=== PATIENT | male | born 1940 | race Caucasian/White ===

== ENCOUNTER 2018-04-24 17:47 | Emergency (ER) | payer MEDICARE, BC ==
[2018-04-24 18:25] VITALS: BP 181/91
--- NOTE | 2018-04-24 19:09 | EDM.PDOC ---
ED HPI GENERAL MEDICAL PROBLEM - General Chief Complaint: ENT Problem Stated Complaint: TOOTHACHE Time Seen by Provider: 04/24/18 18:50 Source of Information: Reports: Patient, Family History Limitations: Reports: No Limitations - History of Present Illness INITIAL COMMENTS - FREE TEXT/NARRATIVE: 77-year-old male with dental pain on the left mandible for the last 2-3 days. He seen the dentist earlier today, had x-rays and was diagnosed with a dental abscess and started on clindamycin. He is taking anti-inflammatories and Tylenol with codeine but it is not controlling the pain. No significant swelling or fever. He needs several teeth pulled. Onset: Gradual Duration: Day(s): (3 days) Associated Symptoms: Reports: No Other Symptoms dental Pain Score (Numeric/FACES): 3 - Related Data Allergies Allergy/AdvReac Type Severity Reaction Status Date / Time Penicillins Allergy Abdominal Verified 04/24/18 19:06 Pain prednisone Allergy Cannot Verified 04/24/18 19:06 Remember metoclopramide HCl AdvReac Abdominal Verified 04/24/18 19:06 [From Reglan] Cramps oxycodone [Oxycodone] AdvReac Abdominal Verified 04/24/18 19:06 Cramps Home Meds: Home Meds Ferrous Sulfate [Iron] 325 mg PO ASDIRECTED 05/07/13 [History] Metoprolol Tartrate [Lopressor] 12.5 mg PO Q12HR 05/07/13 [History] Acetaminophen/Caffeine [Excedrin Tension Headache] 1 tab PO ASDIRECTED PRN 03/13 [History] Aspirin [Vinh Chewable] 81 mg PO DAILY 03/13/14 [History] Caffeine [No Doz] 200 mg PO ASDIRECTED PRN 03/13/14 [History] Cholecalciferol (Vitamin D3) [Vitamin D-3] 2,000 unit PO DAILY 03/13/14 [History ] Docusate Sodium [Colace] 100 mg PO BID PRN 03/13/14 [History] Multivitamin [Multi Vitamin Daily] 1 tab PO DAILY 03/13/14 [History] Omeprazole [priLOSEC OTC] 20 mg PO ASDIRECTED 03/13/14 [History] Pseudoephedrine [Sudafed 12 Hour] 120 mg PO ASDIRECTED PRN 03/13/14 [History] Ranitidine [Zantac] 150 mg PO DAILY PRN 03/13/14 [History] Cyclobenzaprine [Flexeril] 10 mg PO ASDIRECTED PRN 08/07/14 [History] Naproxen 500 mg PO BID PRN 08/07/14 [History] Calcium Carbonate/Vitamin D3 [Calcium Carb 500 MG] 1 tab PO ASDIRECTED 01/23/18 [History] Lovastatin 20 mg PO DAILY 01/23/18 [History] Vitamin B Complex [B Complex] 1 tab PO DAILY 01/23/18 [History] Past Medical History HEENT History: Reports: Impaired Vision Cardiovascular History: Reports: High Cholesterol, Hypertension Other Respiratory History: sarcoidosis lung Gastrointestinal History: Reports: GERD Other Musculoskeletal History: rotator cuff problem Neurological History: Reports: TIA Hematologic History: Reports: Iron Deficiency Oncologic (Cancer) History: Reports: Malignant Melanoma - Infectious Disease History Infectious Disease History: Reports: Chicken Pox, Measles, Mumps, Rubella - Past Surgical History HEENT Surgical History: Reports: Adenoidectomy, Tonsillectomy Cardiovascular Surgical History: Reports: Other (See Below) Other Cardiovascular Surgeries/Procedures: ablation Respiratory Surgical History: Reports: None GI Surgical History: Reports: Colonoscopy, Hernia, Inguinal Neurological Surgical History: Reports: None Musculoskeletal Surgical History: Reports: Arthroscopic Knee Oncologic Surgical History: Reports: Other (See Below) Other Oncologic Surgeries/Procedures: RIGHT ARM EXCISION OF MELANOMA Social & Family History - Family History Family Medical History: Noncontributory - Caffeine Use Caffeine Use: Reports: Soda ED ROS ENT - Review of Systems Review Of Systems: See Below Constitutional: Denies: Fever HEENT: Reports: Dental Pain, Other (Slight swelling along the left mandible) Respiratory: Denies: Shortness of Breath, Cough GI/Abdominal: Denies: Nausea, Vomiting Skin: Denies: Erythema Neurological: Denies: Headache Free Text/Narrative/Comment: Blood pressure is elevated due to the pain ED EXAM, ENT - Physical Exam Exam: See Below Exam Limited By: No Limitations General Appearance: Alert, Mild Distress (Looks uncomfortable) Mouth/Throat: Other (Patient has very advanced dental decay of several molars, the left second molar, #19, is tender to percussion and has some erythema at the base.) Course - Vital Signs Last Recorded V/S: Last Vital Signs Temp 98.9 F 04/24/18 19:06 Pulse 78 04/24/18 19:06 Resp 16 04/24/18 19:06 BP 181/91 H 04/24/18 19:06 Pulse Ox 95 04/24/18 19:06 - Re-Assessments/Exams Free Text/Narrative Re-Assessment/Exam: 04/24/18 19:07 Encouraged to continue the clindamycin as prescribed, and was given 10 Percocet for extra pain control. Continue with anti-inflammatories. Return if fever or increased swelling despite treatment. Departure - Departure Time of Disposition: 19:19 Disposition: Home, Self-Care 01 Condition: Good Clinical Impression: Dental abscess - Discharge Information Instructions: Dental Abscess, [id number] Referrals: Nura Sotelo NP [Primary Care Provider] - Forms: ED Department Discharge Care Plan Goals: Continue with antibiotic and anti-inflammatory. Add stronger pain medication as needed over the next couple of days, and return if worsening such as fever or increased swelling despite treatment.
== END 2018-04-24 19:19 | disposition home or self-care (01) ==
LOC: JP.ED 17:47
DX: K04.7 Periapical abscess without sinus (principal); E78.00 Pure hypercholesterolemia, unspecified; I10 Essential (primary) hypertension; K21.9 Gastro-esophageal reflux disease without esophagitis; Z88.0 Allergy status to penicillin; Z88.5 Allergy status to narcotic agent; Z88.8 Allergy status to other drugs, medicaments and biological substances; Z79.82 Long term (current) use of aspirin
CPT/HCPCS: 99282

== ENCOUNTER 2019-12-28 04:51 | Emergency (ER) | payer MEDICARE, BC ==
[2019-12-28 05:17] VITALS: BP 181/92; PULSE 76
[2019-12-28] MEDS ORDERED: Sodium Chloride 0.9% 1,000 ML IV SCH (05:30)
--- NOTE | 2019-12-28 05:34 | EDM.PDOC ---
ED HPI GENERAL MEDICAL PROBLEM - General Chief Complaint: Upper Extremity Injury/Pain Stated Complaint: MEDICAL VIA NORTH Time Seen by Provider: 12/28/19 05:29 Source of Information: Reports: Patient, Family History Limitations: Reports: No Limitations - History of Present Illness INITIAL COMMENTS - FREE TEXT/NARRATIVE: pt got up to the bathoom and got pain in the left arm and was very liteheaded. He may have noted some spinning in the room. He thinks the dizziness lasted about 1 minute. He does not have aheadache. His bp did go up to 180/90. Onset: Today Duration: Minutes: Location: Reports: Other (pt did not experience any chest pain. 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 - Related Data Allergies Allergy/AdvReac Type Severity Reaction Status Date / Time Penicillins Allergy Abdominal Verified 12/28/19 04:58 Pain prednisone Allergy Cannot Verified 12/28/19 04:58 Remember metoclopramide HCl AdvReac Abdominal Verified 12/28/19 04:58 [From Reglan] Cramps oxycodone [Oxycodone] AdvReac Abdominal Verified 12/28/19 04:58 Cramps Home Meds: Home Meds Ferrous Sulfate [Iron] 325 mg PO ASDIRECTED 05/07/13 [History] Metoprolol Tartrate [Lopressor] 12.5 mg PO Q12HR 05/07/13 [History] Acetaminophen/Caffeine [Excedrin Tension Headache] 1 tab PO ASDIRECTED PRN 03/13/14 [History] Aspirin [Vinh Chewable] 81 mg PO DAILY 03/13/14 [History] Caffeine [No Doz] 200 mg PO ASDIRECTED PRN 03/13/14 [History] Cholecalciferol (Vitamin D3) [Vitamin D-3] 2,000 unit PO DAILY 03/13/14 [History] Docusate Sodium [Colace] 100 mg PO BID PRN 03/13/14 [History] Multivitamin [Multi Vitamin Daily] 1 tab PO DAILY 03/13/14 [History] Omeprazole [priLOSEC OTC] 20 mg PO ASDIRECTED 03/13/14 [History] Pseudoephedrine [Sudafed 12 Hour] 120 mg PO ASDIRECTED PRN 03/13/14 [History] Ranitidine [Zantac] 150 mg PO DAILY PRN 03/13/14 [History] Cyclobenzaprine [Flexeril] 10 mg PO ASDIRECTED PRN 08/07/14 [History] Naproxen 500 mg PO BID PRN 08/07/14 [History] Calcium Carbonate/Vitamin D3 [Calcium Carb 500 MG] 1 tab PO ASDIRECTED 01/23/18 [History] Lovastatin 20 mg PO DAILY 01/23/18 [History] Vitamin B Complex [B Complex] 1 tab PO DAILY 01/23/18 [History] Past Medical History HEENT History: Reports: Impaired Vision Cardiovascular History: Reports: Afib, High Cholesterol, Hypertension Respiratory History: Reports: Other (See Below) Other Respiratory History: sarcoidosis lung Gastrointestinal History: Reports: GERD Genitourinary History: Reports: Prostate Disorder Musculoskeletal History: Reports: Other (See Below) Other Musculoskeletal History: rotator cuff problem Neurological History: Reports: TIA Hematologic History: Reports: Iron Deficiency Oncologic (Cancer) History: Reports: Malignant Melanoma - Infectious Disease History Infectious Disease History: Reports: Chicken Pox, Measles, Mumps - Past Surgical History HEENT Surgical History: Reports: Adenoidectomy, Tonsillectomy Cardiovascular Surgical History: Reports: Cardiac Ablation, Other (See Below) Other Cardiovascular Surgeries/Procedures: ablation Respiratory Surgical History: Reports: None GI Surgical History: Reports: Colonoscopy, Hernia, Inguinal Neurological Surgical History: Reports: None Musculoskeletal Surgical History: Reports: Arthroscopic Knee Oncologic Surgical History: Reports: Other (See Below) Other Oncologic Surgeries/Procedures: RIGHT ARM EXCISION OF MELANOMA Social & Family History - Family History Family Medical History: Noncontributory - Tobacco Use Tobacco Use Status *Q: Never Tobacco User - Caffeine Use Caffeine Use: Reports: Soda - Recreational Drug Use Recreational Drug Use: No Review of Systems - Review of Systems Review Of Systems: See Below Constitutional: Reports: No Symptoms Eyes: Reports: No Symptoms Ears: Reports: No Symptoms Nose: Reports: No Symptoms Mouth/Throat: Reports: No Symptoms Respiratory: Reports: No Symptoms Cardiovascular: Reports: Other (left arm pain that was very brief. ) GI/Abdominal: Reports: Constipation, Other (pt does not drink enough fluids. ) Genitourinary: Reports: No Symptoms Musculoskeletal: Reports: No Symptoms Skin: Reports: No Symptoms ED EXAM, GENERAL - Physical Exam Exam: See Below Free Text/Narrative:: pt arrived with a history of dizziness that lasted 1 minute ans a brief left arm pain whjen he was up to the bathroom. Exam Limited By: No Limitations General Appearance: Alert, No Apparent Distress, Anxious, Other (pupils are equal and reactive. ) Ears: Normal TMs Nose: Normal Inspection Throat/Mouth: Normal Inspection Head: Atraumatic Neck: Normal Inspection Respiratory/Chest: No Respiratory Distress Cardiovascular: Regular Rate, Rhythm GI/Abdominal: Soft, Non-Tender (Male) Exam: Deferred Rectal (Males) Exam: Deferred Back Exam: Normal Inspection Extremities: Normal Inspection Neurological: Alert, Oriented, Normal Cognition Psychiatric: Anxious Course - Vital Signs Last Recorded V/S: Last Vital Signs Temp 36.6 C 12/28/19 05:01 Pulse 76 12/28/19 05:01 Resp 18 12/28/19 05:01 BP 181/92 H 12/28/19 05:01 Pulse Ox 98 12/28/19 05:01 Orthostatic Blood Pressure [ 170/90 Standing] Orthostatic Blood Pressure [ 166/84 Sitting] Orthostatic Blood Pressure [ 155/91 Supine] - Orders/Labs/Meds Orders: Active Orders 24 hr Category Date Time Status EKG Documentation Completion [RC] ASDIRECTED Care 12/28/19 05:16 Active Orthostatic Vital Signs [RC] ASDIRECTED Care 12/28/19 05:28 Active UA W/MICROSCOPIC [URIN] Urgent Lab 12/28/19 06:37 Ordered Sodium Chloride 0.9% [Normal Saline] 1,000 ml Med 12/28/19 05:30 Active IV ASDIRECTED EKG 12 Lead [EK] Routine Ther 12/28/19 05:16 Ordered Medication Orders Sodium Chloride (Normal Saline) 1,000 mls @ 999 mls/hr IV ASDIRECTED JANA Last Admin: 12/28/19 05:37 Dose: 999 mls/hr Documented by: ANNMARIE Labs: Laboratory Tests 12/28/19 12/28/19 12/28/19 Range/Units 05:16 05:42 05:42 WBC 4.8 (4.5-11.0) K/uL RBC 4.90 (4.30-5.90) M/uL Hgb 11.8 L (12.0-15.0) g/dL Hct 38.8 L (40.0-54.0) % MCV 79 L (80-98) fL MCH 24 L (27-31) pg MCHC 30 L (32-36) % Plt Count 184 (150-400) K/uL Neut % (Auto) 60 (36-66) % Lymph % (Auto) 22 L (24-44) % Band[place] % (Auto) 14 H (2-6) % Eos % (Auto) 4 (2-4) % Baso % (Auto) 1 (0-1) % Sodium 141 (140-148) mmol/L Potassium 3.6 (3.6-5.2) mmol/L Chloride 104 (100-108) mmol/L Carbon Dioxide 26 (21-32) mmol/L Anion Gap 11.0 (5.0-14.0) mmol/L BUN 7 D (7-18) mg/dL Creatinine 1.2 (0.8-1.3) mg/dL Est Cr Clr Drug Dosing 49.88 mL/min Estimated GFR (MDRD) 59 L (>60) Glucose 95 (74-106) mg/dL Calcium 8.6 (8.5-10.1) mg/dL Iron (65-175) ug/dL TIBC (250-450) ug/dl % Saturation (20-55) % Total Bilirubin 0.7 (0.2-1.0) mg/dL AST 25 (15-37) U/L ALT 21 (12-78) U/L Alkaline Phosphatase 84 (46-116) U/L Troponin I < 0.017 (0.000-0.056) ng/mL Total Protein 6.6 (6.4-8.2) g/dL Albumin 3.5 (3.4-5.0) g/dL Globulin 3.1 (2.3-3.5) g/dL Albumin/Globulin Ratio 1.1 L (1.2-2.2) 12/28/19 Range/Units 06:10 WBC (4.5-11.0) K/uL RBC (4.30-5.90) M/uL Hgb (12.0-15.0) g/dL Hct (40.0-54.0) % MCV (80-98) fL MCH (27-31) pg MCHC (32-36) % Plt Count (150-400) K/uL Neut % (Auto) (36-66) % Lymph % (Auto) (24-44) % Band[place] % (Auto) (2-6) % Eos % (Auto) (2-4) % Baso % (Auto) (0-1) % Sodium (140-148) mmol/L Potassium (3.6-5.2) mmol/L Chloride (100-108) mmol/L Carbon Dioxide (21-32) mmol/L Anion Gap (5.0-14.0) mmol/L BUN (7-18) mg/dL Creatinine (0.8-1.3) mg/dL Est Cr Clr Drug Dosing mL/min Estimated GFR (MDRD) (>60) Glucose (74-106) mg/dL Calcium (8.5-10.1) mg/dL Iron 31 L (65-175) ug/dL TIBC 363 (250-450) ug/dl % Saturation 9 L (20-55) % Total Bilirubin (0.2-1.0) mg/dL AST (15-37) U/L ALT (12-78) U/L Alkaline Phosphatase (46-116) U/L Troponin I (0.000-0.056) ng/mL Total Protein (6.4-8.2) g/dL Albumin (3.4-5.0) g/dL Globulin (2.3-3.5) g/dL Albumin/Globulin Ratio (1.2-2.2) Meds: Medications Generic Name Dose Route Start Last Admin Trade Name Freq PRN Reason Stop Dose Admin Sodium Chloride 1,000 mls @ 999 mls/hr 12/28/19 05:30 12/28/19 05:37 Normal Saline IV 999 mls/hr ASDIRECTED [facility] Administration - Re-Assessments/Exams Free Text/Narrative Re-Assessment/Exam: 12/28/19 05:48 pt admits to not drinking enough fluids. He has a very dry mouth. 12/28/19 06:42 pt has low fe ans his hg is 11. He will try to get more fe in his diet. Departure - Departure Time of Disposition: 06:42 Disposition: Home, Self-Care 01 Condition: Fair Clinical Impression: Anemia, Iron (Fe) deficiency anemia, Dehydration - Discharge Information Referrals: PCP,None [Primary Care Provider] - Forms: ED Department Discharge Care Plan Goals: push fluids, increase fe in diet. If swallowing difficulty continues pt should get rescoped. Sepsis Event Note (ED) - Evaluation Sepsis Screening Result: No Definite Risk - Focused Exam Vital Signs: Vital Signs Temp Pulse Resp BP Pulse Ox 12/28/19 05:01 36.6 C 76 18 181/92 H 98 - My Orders Last 24 Hours: My Active Orders 12/28/19 05:16 EKG Documentation Completion [RC] ASDIRECTED EKG 12 Lead [EK] Routine 12/28/19 05:28 Orthostatic Vital Signs [RC] ASDIRECTED 12/28/19 05:30 Sodium Chloride 0.9% [Normal Saline] 1,000 ml IV ASDIRECTED 12/28/19 06:37 UA W/MICROSCOPIC [URIN] Urgent - Assessment/Plan Last 24 Hours: My Active Orders 12/28/19 05:16 EKG Documentation Completion [RC] ASDIRECTED EKG 12 Lead [EK] Routine 12/28/19 05:28 Orthostatic Vital Signs [RC] ASDIRECTED 12/28/19 05:30 Sodium Chloride 0.9% [Normal Saline] 1,000 ml IV ASDIRECTED 12/28/19 06:37 UA W/MICROSCOPIC [URIN] Urgent
== END 2019-12-28 06:51 | disposition home or self-care (01) ==
LOC: JP.ED 04:51
DX: E86.0 Dehydration (principal); D50.9 Iron deficiency anemia, unspecified; M79.602 Pain in left arm; E78.00 Pure hypercholesterolemia, unspecified; I10 Essential (primary) hypertension; I48.91 Unspecified atrial fibrillation; Z88.0 Allergy status to penicillin; Z88.5 Allergy status to narcotic agent; Z88.8 Allergy status to other drugs, medicaments and biological substances; Z88.2 Allergy status to sulfonamides; Z79.82 Long term (current) use of aspirin; Z79.899 Other long term (current) drug therapy
CPT/HCPCS: 36415; 80053; 81001; 83550; 84484; 85025; 93005; 93010; 99284; J7030

== ENCOUNTER 2020-12-23 11:29 | Emergency (ER) | payer MEDICARE, BC ==
[2020-12-23 11:33] VITALS: BP 148/77; PULSE 79
[2020-12-23] MEDS ORDERED: Lidocaine 1% with EPINEPHrine 1:100,000 50 ML MDV ONE (11:37)
[2020-12-23] MEDS ORDERED: Lidocaine 1% with EPINEPHrine 1:100,000 50 ML MDV INJECT ONE (11:40)
--- NOTE | 2020-12-23 11:48 | EDM.PDOC ---
ED HPI GENERAL MEDICAL PROBLEM - General Chief Complaint: Laceration Stated Complaint: MEDICAL VIA NORTH Time Seen by Provider: 12/23/20 11:45 Source of Information: Reports: Patient, RN Notes Reviewed History Limitations: Reports: No Limitations - History of Present Illness INITIAL COMMENTS - FREE TEXT/NARRATIVE: 80-year-old gentleman presents emergency department today where he describes bleeding from his left lower extremity EMS services were called tourniquet was placed by law enforcement and another by EMS as well as a pressure dressing. By the time he arrives to the emergency department bleeding is controlled the 2 tourniquets were removed slowly he remains in the pressure dressing the pressure dressing was packed with Tranexamic acid - Related Data Allergies Allergy/AdvReac Type Severity Reaction Status Date / Time Penicillins Allergy Abdominal Verified 12/23/20 11:47 Pain prednisone Allergy Cannot Verified 12/23/20 11:47 Remember metoclopramide HCl AdvReac Abdominal Verified 12/23/20 11:47 [From Reglan] Cramps oxycodone [Oxycodone] AdvReac Abdominal Verified 12/23/20 11:47 Cramps Home Meds: Home Meds Ferrous Sulfate [Iron] 325 mg PO DAILY 05/07/13 [History] Metoprolol Tartrate [Lopressor] 12.5 mg PO Q12HR 05/07/13 [History] Aspirin [Vinh Chewable] 81 mg PO DAILY 03/13/14 [History] Cholecalciferol (Vitamin D3) [Vitamin D-3] 2,000 unit PO DAILY 03/13/14 [History] Multivitamin [Multi Vitamin Daily] 1 tab PO DAILY 03/13/14 [History] Omeprazole [priLOSEC OTC] 20 mg PO DAILY 03/13/14 [History] Pseudoephedrine [Sudafed 12 Hour] 120 mg PO ASDIRECTED PRN 03/13/14 [History] Cyclobenzaprine [Flexeril] 10 mg PO ASDIRECTED PRN 08/07/14 [History] Naproxen 500 mg PO BID PRN 08/07/14 [History] Lovastatin 20 mg PO DAILY 01/23/18 [History] Vitamin B Complex [B Complex] 1 tab PO DAILY 01/23/18 [History] Past Medical History HEENT History: Reports: Impaired Vision Cardiovascular History: Reports: Afib, High Cholesterol, Hypertension Respiratory History: Reports: Other (See Below) Other Respiratory History: sarcoidosis lung Gastrointestinal History: Reports: GERD Genitourinary History: Reports: Prostate Disorder Musculoskeletal History: Reports: Other (See Below) Other Musculoskeletal History: rotator cuff problem Neurological History: Reports: TIA Hematologic History: Reports: Iron Deficiency Oncologic (Cancer) History: Reports: Malignant Melanoma - Infectious Disease History Infectious Disease History: Reports: Chicken Pox, Measles, Mumps - Past Surgical History HEENT Surgical History: Reports: Adenoidectomy, Tonsillectomy Cardiovascular Surgical History: Reports: Cardiac Ablation, Other (See Below) Other Cardiovascular Surgeries/Procedures: ablation Respiratory Surgical History: Reports: None GI Surgical History: Reports: Colonoscopy, Hernia, Inguinal Neurological Surgical History: Reports: None Musculoskeletal Surgical History: Reports: Arthroscopic Knee Oncologic Surgical History: Reports: Other (See Below) Other Oncologic Surgeries/Procedures: RIGHT ARM EXCISION OF MELANOMA Social & Family History - Family History Family Medical History: No Pertinent Family History - Caffeine Use Caffeine Use: Reports: Soda ED ROS GENERAL - Review of Systems Review Of Systems: See Below Skin: Reports: Wound ED EXAM, SKIN/RASH Exam: See Below Text/Narrative:: Examination of the lower extremity and left side there is a small puncture wound approximately 0.2 0.3 cm bleeding is controlled elected to proceed with just a superficial [id number] to close the wound ED SKIN PROCEDURES - Laceration/Wound Repair Left Leg Appearance: Superficial Anesthetic Type: Local Local Anesthesia - Lidocaine (Xylocaine): 1% with EPI Local Anesthetic Volume: 2cc Saline Irrigation (cc's): 20 Exploration/Debridement/Repair: Wound Explored, In a Bloodless Field, Explored to Base Closed with: Sutures Lac/Wound length In cm: 0.2 Suture Size: 3-0 # of Sutures: 1 Suture Type: Other ( figure of eight) Complications: No Course - Vital Signs Last Recorded V/S: Last Vital Signs Temp 97.7 F 12/23/20 11:56 Pulse 79 12/23/20 11:56 Resp 18 12/23/20 11:56 BP 148/77 H 12/23/20 11:56 Pulse Ox 98 12/23/20 11:56 - Orders/Labs/Meds Meds: Medications Discontinued Medications Generic Name Dose Route Start Last Admin Trade Name Freq PRN Reason Stop Dose Admin Lidocaine/Epinephrine Confirm 12/23/20 11:37 Lidocaine 1% With Epinephrine 1:100,000 50 Ml Mdv Administered 12/23/20 11:38 Dose 50 ml .ROUTE .STK-MED ONE Departure - Departure Time of Disposition: 12:12 Disposition: Home, Self-Care 01 Condition: Fair Clinical Impression: Puncture wound of left lower leg Qualifiers: Encounter type: initial encounter Qualified Code(s): S81.832A - Puncture wound without foreign body, left lower leg, initial encounter - Discharge Information Instructions: Puncture Wound Referrals: PCP,Unknown [Primary Care Provider] - Forms: ED Department Discharge Additional Instructions: Follow wound care instruction sheet, follow-up with primary care for further evaluation 10 days for suture removal Sepsis Event Note (ED) - Focused Exam Vital Signs: Vital Signs Temp Pulse Resp BP Pulse Ox 12/23/20 11:56 97.7 F 79 18 148/77 H 98 12/23/20 11:32 97.7 F 79 18 148/77 H 98 - Assessment/Plan Plan: Assessment Acuity = acute Site and laterality = superficial venous bleeding Etiology = varicose veins break in the skin Manifestations = none Location of injury = Home Lab values = none Plan Just placed a superficial [id number] over the small puncture wound he will follow-up with his primary care for further evaluation This note was dictated using [employer] voice recognition software please call with any questions on syntax or grammar.
== END 2020-12-23 13:23 | disposition home or self-care (01) ==
LOC: JP.ED 11:29
DX: S81.832A Puncture wound without foreign body, left lower leg, initial encounter (principal); I48.91 Unspecified atrial fibrillation; I10 Essential (primary) hypertension; K21.9 Gastro-esophageal reflux disease without esophagitis; D50.9 Iron deficiency anemia, unspecified; Z88.0 Allergy status to penicillin; Z88.8 Allergy status to other drugs, medicaments and biological substances; Z88.5 Allergy status to narcotic agent; Z79.82 Long term (current) use of aspirin; Z79.899 Other long term (current) drug therapy; X58.XXXA Exposure to other specified factors, initial encounter
CPT/HCPCS: 12001; 99283-25

== ENCOUNTER 2021-01-02 00:01 | Emergency (ER) | payer MEDICARE, BC ==
[2021-01-02 00:05] VITALS: BP 171/75; PULSE 60
--- NOTE | 2021-01-02 00:31 | EDM.PDOC ---
ED HPI GENERAL MEDICAL PROBLEM - General Chief Complaint: General Stated Complaint: CHEST PRESSURE VIA [facility] Time Seen by Provider: 01/02/21 00:23 Source of Information: Reports: Patient History Limitations: Reports: No Limitations - History of Present Illness INITIAL COMMENTS - FREE TEXT/NARRATIVE: pt developed a intense pressure in the middle of his chest. He has a past histo ry of atrial fib but has not had recent problems. He has not had this pain in thr past. He thinks it lasted about 10 minutes. By the time the ambulance got there the pain was gone. He is pain free at this time. Onset: Today, Sudden Duration: Minutes: Location: Reports: Chest, Other (pt is pain free. ) Quality: Reports: Pressure - Related Data Allergies Allergy/AdvReac Type Severity Reaction Status Date / Time Penicillins Allergy Abdominal Verified 01/02/21 00:06 Pain prednisone Allergy Cannot Verified 01/02/21 00:06 Remember metoclopramide HCl AdvReac Abdominal Verified 01/02/21 00:06 [From Reglan] Cramps oxycodone [Oxycodone] AdvReac Abdominal Verified 01/02/21 00:06 Cramps Home Meds: Home Meds Ferrous Sulfate [Iron] 325 mg PO DAILY 05/07/13 [History] Metoprolol Tartrate [Lopressor] 12.5 mg PO Q12HR 05/07/13 [History] Aspirin [Vinh Chewable] 81 mg PO DAILY 03/13/14 [History] Cholecalciferol (Vitamin D3) [Vitamin D-3] 2,000 unit PO DAILY 03/13/14 [History] Multivitamin [Multi Vitamin Daily] 1 tab PO DAILY 03/13/14 [History] Omeprazole [priLOSEC OTC] 20 mg PO DAILY 03/13/14 [History] Pseudoephedrine [Sudafed 12 Hour] 120 mg PO ASDIRECTED PRN 03/13/14 [History] Cyclobenzaprine [Flexeril] 10 mg PO ASDIRECTED PRN 08/07/14 [History] Naproxen 500 mg PO BID PRN 08/07/14 [History] Lovastatin 20 mg PO DAILY 01/23/18 [History] Vitamin B Complex [B Complex] 1 tab PO DAILY 01/23/18 [History] Past Medical History HEENT History: Reports: Impaired Vision Cardiovascular History: Reports: Afib, High Cholesterol, Hypertension Respiratory History: Reports: Other (See Below) Other Respiratory History: sarcoidosis lung Gastrointestinal History: Reports: GERD Genitourinary History: Reports: Prostate Disorder Musculoskeletal History: Reports: Other (See Below) Other Musculoskeletal History: rotator cuff problem Neurological History: Reports: TIA Hematologic History: Reports: Iron Deficiency Oncologic (Cancer) History: Reports: Malignant Melanoma - Infectious Disease History Infectious Disease History: Reports: Chicken Pox, Measles, Mumps - Past Surgical History HEENT Surgical History: Reports: Adenoidectomy, Tonsillectomy Cardiovascular Surgical History: Reports: Cardiac Ablation, Other (See Below) Other Cardiovascular Surgeries/Procedures: ablation Respiratory Surgical History: Reports: None GI Surgical History: Reports: Colonoscopy, Hernia, Inguinal Neurological Surgical History: Reports: None Musculoskeletal Surgical History: Reports: Arthroscopic Knee Oncologic Surgical History: Reports: Other (See Below) Other Oncologic Surgeries/Procedures: RIGHT ARM EXCISION OF MELANOMA Social & Family History - Family History Family Medical History: No Pertinent Family History - Tobacco Use Tobacco Use Status *Q: Never Tobacco User - Caffeine Use Caffeine Use: Reports: Soda - Recreational Drug Use Recreational Drug Use: No ED ROS GENERAL - Review of Systems Review Of Systems: See Below Constitutional: Reports: No Symptoms HEENT: Reports: No Symptoms Respiratory: Reports: No Symptoms Cardiovascular: Reports: Chest Pain Endocrine: Reports: No Symptoms GI/Abdominal: Reports: Other (pt ws not nauseated or did not vomit. He did not get sweaty. ) : Reports: No Symptoms Musculoskeletal: Reports: No Symptoms Skin: Reports: No Symptoms ED EXAM, GENERAL - Physical Exam Exam: See Below Free Text/Narrative:: pt arrived with a history of significant chest pressure that lasted for about 10 min. Exam Limited By: No Limitations General Appearance: Alert, No Apparent Distress, Anxious Ears: Normal TMs Nose: Normal Inspection Throat/Mouth: Normal Inspection Head: Atraumatic Neck: Normal Inspection Respiratory/Chest: No Respiratory Distress Cardiovascular: Regular Rate, Rhythm GI/Abdominal: Soft, Non-Tender (Male) Exam: Deferred Rectal (Males) Exam: Deferred Back Exam: Normal Inspection Extremities: Pedal Edema, Other (pt has plus 2 pitting edema. ) Neurological: Alert, Oriented, Normal Cognition Psychiatric: Anxious #1 Interpretation Rhythm: NSR QRS: RBBB ST-T: Normal EKG Interpretation Comments: pt is having atrial premature beats which resets his rhythm. rate is 57. Course - Vital Signs Last Recorded V/S: Last Vital Signs Temp 35.8 C L 01/02/21 00:03 Pulse 60 01/02/21 00:03 Resp 16 01/02/21 00:03 BP 171/75 H 01/02/21 00:03 Pulse Ox 100 01/02/21 00:03 - Orders/Labs/Meds Orders: Active Orders 24 hr Category Date Time Status EKG 12 Lead [EK] Routine Ther 01/02/21 00:23 Ordered Labs: Laboratory Tests 01/02/21 01/02/21 01/02/21 Range/Units 00:36 00:36 00:36 WBC 4.3 L (4.5-11.0) K/uL RBC 4.30 (4.30-5.90) M/uL Hgb 11.8 L (12.0-15.0) g/dL Hct 37.1 L (40.0-54.0) % MCV 86 (80-98) fL MCH 27 (27-31) pg MCHC 32 (32-36) % Plt Count 173 (150-400) K/uL Neut % (Auto) 49.8 (36-66) % Lymph % (Auto) 20.0 L (24-44) % [place] % (Auto) 19.1 H (2-6) % Eos % (Auto) 10.2 H (2-4) % Baso % (Auto) 0.9 (0-1) % Sodium 145 (140-148) mmol/L Potassium 3.9 (3.6-5.2) mmol/L Chloride 108 (100-108) mmol/L Carbon Dioxide 25 (21-32) mmol/L Anion Gap 11.7 (5.0-14.0) mmol/L BUN 8 (7-18) mg/dL Creatinine 0.9 (0.8-1.3) mg/dL Est Cr Clr Drug Dosing 65.10 mL/min Estimated GFR (MDRD) > 60 (>60) Glucose 86 (74-106) mg/dL Calcium 8.6 (8.5-10.1) mg/dL Total Bilirubin 0.6 (0.2-1.0) mg/dL AST 41 H (15-37) U/L ALT 35 (12-78) U/L Alkaline Phosphatase 71 (46-116) U/L Troponin I < 0.017 (0.000-0.056) ng/mL Total Protein 6.6 (6.4-8.2) g/dL Albumin 3.6 (3.4-5.0) g/dL Globulin 3.0 (2.3-3.5) g/dL Albumin/Globulin Ratio 1.2 (1.2-2.2) - Re-Assessments/Exams Free Text/Narrative Re-Assessment/Exam: 01/02/21 01:32 cardiac evaluation showed normal trop/ He has a rt bundle branch block he has no acute changes. He has no further chest pain Departure - Departure Time of Disposition: 01:33 Disposition: Home, Self-Care 01 Condition: Fair Clinical Impression: Chest pain, History of esophageal reflux - Discharge Information Referrals: PCP,Unknown [Primary Care Provider] - Forms: ED Department Discharge Care Plan Goals: take extra omeprozole tonight. See his own physian if he has further symtoms, use compresion socks for his edema. Elevate his legs when he is sitting. Sepsis Event Note (ED) - Evaluation Sepsis Screening Result: No Definite Risk - Focused Exam Vital Signs: Vital Signs Temp Pulse Resp BP Pulse Ox 01/02/21 00:03 35.8 C L 60 16 171/75 H 100 - My Orders Last 24 Hours: My Active Orders 01/02/21 00:23 EKG 12 Lead [EK] Routine - Assessment/Plan Last 24 Hours: My Active Orders 01/02/21 00:23 EKG 12 Lead [EK] Routine
--- NOTE | 2021-01-02 01:08 | CRLCR ---
For Patients: As a result of the Century Cures Act, medical imaging exams and procedure reports are released immediately into your electronic medical record. You may view this report before your referring provider. If you have questions, please contact your health care provider. INDICATION: Chest pain, shortness of breath TECHNIQUE: Chest radiograph 1 view COMPARISON: 10/25/2016 FINDINGS: Mediastinum: The mediastinum is normal in appearance. The heart silhouette is normal in size and morphology. Lung: Both lungs are unremarkable in appearance. No sign of pleural effusion seen. No pneumothorax is identified. Bone and Soft tissue: Unremarkable for age. IMPRESSION: 1. No acute cardiopulmonary disease is seen. Dictated by: Compa Higginbotham MD @ 01/02/2021 01:05:43 (Electronically Signed)
== END 2021-01-02 01:48 | disposition home or self-care (01) ==
LOC: JP.ED 00:01
DX: R07.89 Other chest pain (principal); K21.9 Gastro-esophageal reflux disease without esophagitis; I48.91 Unspecified atrial fibrillation; E78.00 Pure hypercholesterolemia, unspecified; I10 Essential (primary) hypertension; Z86.73 Personal history of transient ischemic attack (TIA), and cerebral infarction without residual deficits; Z88.0 Allergy status to penicillin; Z88.5 Allergy status to narcotic agent; Z88.8 Allergy status to other drugs, medicaments and biological substances; Z79.82 Long term (current) use of aspirin; Z79.899 Other long term (current) drug therapy
CPT/HCPCS: 36415; 71045; 80053; 84484; 85025; 93005; 99285-25

== ENCOUNTER 2022-07-20 16:25 | Inpatient (IN) | payer MEDICARE, BC ==
[2022-07-20] MEDS ORDERED: Ondansetron 4 MG/2 ML SDV IVPUSH ONE (16:56)
[2022-07-20] MEDS ORDERED: HYDROmorphone 0.5 MG/0.5 ML Syringe IVPUSH ONE (16:56)
[2022-07-20] MEDS ORDERED: Sodium Chloride 0.9% 1,000 ML IV SCH (17:00)
[2022-07-20 17:09] LABS: HEMATOCRIT 44.5 % (38.4-49.7); HEMOGLOBIN 15.2 g/dL (12.9-16.9); MEAN CORPUSCULAR HEMOGLOBIN 29.7 pg (31.6-35.5); MEAN CORPUSCULAR HGB CONC 34.2 g/dL (31.6-35.5); MEAN CORPUSCULAR VOLUME 87.1 fL (81.4-99.0); RED BLOOD CELL COUNT 5.11 M/uL (4.14-5.76)
[2022-07-20 17:32] LABS: ALANINE AMINOTRANSFERASE,ALT 22 U/L (12-78); ALBUMIN 3.9 g/dL (3.4-5.0); ALKALINE PHOSPHATASE 71 U/L (46-116); ANION GAP 15.7 mmol/L (5.0-14.0); ASPARTATE AMNIOTRANSFERASE,AST 29 U/L (15-37); BLOOD UREA NITROGEN,BUN 11 mg/dL (7-18); CALCIUM 8.9 mg/dL (8.5-10.1); CARBON DIOXIDE,CO2 23 mmol/L (21-32); CHLORIDE,CL 96 mmol/L (100-108); CREATININE 0.9 mg/dL (0.8-1.3); ESTIMATED GFR 87 mL/min (>60); GLUCOSE RANDOM 182 mg/dL (74-106); POTASSIUM,K 3.7 mmol/L (3.6-5.2); PROTEIN TOTAL,TP 7.7 g/dL (6.4-8.2); SODIUM,NA 131 mmol/L (140-148)
[2022-07-20 18:43] LABS: APPEARANCE,URINE CLEAR (CLEAR); BILIRUBIN,URINE NEGATIVE (NEGATIVE); COLOR,URINE YELLOW (YELLOW); GLUCOSE,URINE NEGATIVE (NEGATIVE); KETONES,URINE 15 mg/dL (NEGATIVE); LEUKOCYTE ESTERASE,URINE NEGATIVE (NEGATIVE); NITRITE,URINE NEGATIVE (NEGATIVE); OCCULT BLOOD,URINE NEGATIVE (NEGATIVE); PROTEIN,URINE NEGATIVE (NEGATIVE); UROBILINOGEN,URINE 0.2 EU/dL (0.2-1.0)
[2022-07-20 18:48] LABS: AMPHETAMINES SCREEN, URINE NEGATIVE (NEGATIVE); BARBITURATE SCREEN,URINE NEGATIVE (NEGATIVE); BENZODIAZEPINES SCREEN,URINE NEGATIVE (NEGATIVE); METHADONE SCREEN, URINE NEGATIVE (NEGATIVE); METHAMPHETAMINES SCREEN, URINE NEGATIVE (NEGATIVE); OXYCODONE SCREEN,URINE NEGATIVE (NEGATIVE); PROPOXYPHENE SCREEN,URINE NEGATIVE (NEGATIVE); THC SCREEN,URINE 50 NG/ML NEGATIVE (NEGATIVE)
[2022-07-20 18:56] LABS: AMORPHOUS SEDIMENT,URINE NOT SEEN; BACTERIA,URINE RARE; EPITHELIAL CELLS,URINE RARE; MUCUS,URINE RARE; RBC,URINE 0-5 (0-5); WBC,URINE 0-5 (0-5)
[2022-07-20] MEDS ORDERED: Ondansetron 4 MG/2 ML SDV IV PRN (19:15)
[2022-07-20] MEDS: Lactated Ringers 1,000 ML IV SCH (20:05)
[2022-07-20] MEDS: ceFAZolin 2 GM in Sodium Chloride 0.9% 50 ML IV SCH (21:16)
[2022-07-21] MEDS: ceFAZolin 2 GM in Sodium Chloride 0.9% 50 ML IV SCH (03:10)
[2022-07-21] MEDS: Lactated Ringers 1,000 ML IV SCH (06:04)
[2022-07-21] MEDS ORDERED: Lidocaine 1% with EPINEPHrine 1:100,000 50 ML MDV ONE (07:05)
[2022-07-21] MEDS ORDERED: Bupivacaine 0.5% 50 ML MDV ONE (07:05)
[2022-07-21] MEDS ORDERED: Glycopyrrolate 0.2 MG/ML 5 ML MDV ONE (07:18)
[2022-07-21] MEDS ORDERED: Propofol 200 MG/20 ML SDV ONE (07:18)
[2022-07-21] MEDS ORDERED: Rocuronium 50 MG/5 ML Vial ONE (07:18)
[2022-07-21] MEDS ORDERED: Ondansetron 4 MG/2 ML SDV ONE (07:18)
[2022-07-21] MEDS ORDERED: fentaNYL 250 MCG/5 ML SDV ONE (07:18)
[2022-07-21] MEDS ORDERED: Dexamethasone 4 MG/ML SDV ONE (07:18)
[2022-07-21] MEDS ORDERED: Neostigmine Methylsulfate 1 MG/ML 5 ML Syringe ONE (07:18)
[2022-07-21] MEDS ORDERED: Succinylcholine 200 MG/10 ML MDV ONE (07:18)
[2022-07-21] MEDS ORDERED: Ketamine 17 MG in Sodium Chloride 0.9% 19.83 ML IV SCH (08:00)
[2022-07-21] MEDS ORDERED: Ketamine 500 MG/5 ML MDV IV SCH (08:00)
[2022-07-21] MEDS ORDERED: Ropivacaine 34 ML, dexAMETHasone 8 MG, EPINEPHrine 0.4 MG, Sodium Chloride 0.9% 43.6 ML NERVRT SCH ×4 (08:00)
[2022-07-21] MEDS ORDERED: Lactated Ringers 1,000 ML ONE (09:08)
[2022-07-21] MEDS ORDERED: HYDROmorphone 0.5 MG/0.5 ML Syringe IVPUSH PRN (11:00)
[2022-07-21] MEDS ORDERED: ceFAZolin 2 GM in Premix Bag 1 BAG IV SCH (11:00)
[2022-07-21] MEDS ORDERED: HYDROmorphone 1 MG/ML Syringe IV PRN (11:00)
[2022-07-21] MEDS ORDERED: oxyCODONE 5 MG Tab PO PRN (11:01)
[2022-07-21] MEDS: cefOXitin 2 GM in Sodium Chloride 0.9% 50 ML IV SCH ×3 (11:16→22:50)
[2022-07-21] MEDS ORDERED: Pantoprazole 40 MG Vial IVPUSH SCH (11:30)
[2022-07-21] MEDS: Dextrose 5%-Lactated Ringers 1,000 ML IV SCH (13:42)
[2022-07-21] MEDS ORDERED: Lidocaine 2% Jelly 10 ML Urojet MUCMEM ONE (17:37)
[2022-07-21] MEDS ORDERED: Tamsulosin 0.4 MG Cap.ER PO ONE (18:10)
[2022-07-21] MEDS: Tamsulosin 0.4 MG Cap.ER PO SCH (21:27)
[2022-07-22] MEDS: HYDROmorphone 2 MG Tab PO PRN ×2 (01:05→05:30)
[2022-07-22] MEDS: Dextrose 5%-Lactated Ringers 1,000 ML IV SCH ×2 (01:09→13:52)
[2022-07-22 04:17] LABS: BASOPHILS PERCENT AUTO 0.2 % (0.1-1.3); HEMATOCRIT 35.2 % (38.4-49.7); IMMATURE GRAN ABSOLUTE AUTO 0.25 K/uL (0.00-0.23); IMMATURE GRAN PERCENT AUTO 1.9 % (0.0-0.7); LYMPHOCYTES ABSOLUTE AUTO 0.37 K/uL (0.8-3.3); LYMPHOCYTES PERCENT AUTO 2.9 % (11.4-47.7); MEAN CORPUSCULAR HEMOGLOBIN 29.9 pg (31.6-35.5); MEAN CORPUSCULAR HGB CONC 34.1 g/dL (31.6-35.5); MEAN CORPUSCULAR VOLUME 87.6 fL (81.4-99.0); MONOCYTES ABSOLUTE AUTO 0.66 K/uL (0.20-0.90); MONOCYTES PERCENT AUTO 5.1 % (3.3-12.6); NEUTROPHILS ABSOLUTE AUTO 11.65 K/uL (1.0-7.6); NEUTROPHILS PERCENT AUTO 89.9 % (40.0-78.1); PLATELET COUNT,PLT 135 K/uL (130-375); RED BLOOD CELL COUNT 4.02 M/uL (4.14-5.76)
[2022-07-22 04:34] LABS: A/G RATIO 0.7 (1.2-2.2); ALANINE AMINOTRANSFERASE,ALT 39 U/L (12-78); ALBUMIN 2.5 g/dL (3.4-5.0); ALKALINE PHOSPHATASE 53 U/L (46-116); ASPARTATE AMNIOTRANSFERASE,AST 58 U/L (15-37); BILIRUBIN TOTAL 1.2 mg/dL (0.2-1.0); BLOOD UREA NITROGEN,BUN 11 mg/dL (7-18); CALCIUM 8.4 mg/dL (8.5-10.1); CARBON DIOXIDE,CO2 26 mmol/L (21-32); CHLORIDE,CL 105 mmol/L (100-108); EST CRCL DRUG DOSING (CG) 49.72 mL/min; ESTIMATED GFR 77 mL/min (>60); GLUCOSE RANDOM 153 mg/dL (74-106); MAGNESIUM 1.9 mg/dL (1.8-2.4); PHOSPHORUS 2.2 mg/dL (2.5-4.9); POTASSIUM,K 4.1 mmol/L (3.6-5.2); PROTEIN TOTAL,TP 5.9 g/dL (6.4-8.2); SODIUM,NA 137 mmol/L (140-148)
[2022-07-22 04:59] LABS: ANION GAP 10.1 mmol/L (5.0-14.0); BASOPHILS ABSOLUTE AUTO 0.02 K/uL (0.00-0.10)
[2022-07-22] MEDS: cefOXitin 2 GM in Sodium Chloride 0.9% 50 ML IV SCH (05:30)
[2022-07-22] MEDS ORDERED: Ketorolac 30 MG/ML SDV IM ONE (08:00)
[2022-07-22] MEDS: Meropenem 1 GM in Sodium Chloride 0.9% 100 ML IV SCH ×2 (11:00→17:06)
[2022-07-22] MEDS: Docusate Sodium 100 MG Cap PO SCH ×2 (11:00→20:42)
[2022-07-22] MEDS: Bisacodyl 5 MG Tab PO SCH ×2 (11:00→20:42)
[2022-07-22] MEDS: Pantoprazole 40 MG Tab.CR PO SCH (11:05)
[2022-07-22] MEDS ORDERED: Calcium Carbonate 500 MG Tab.Chew PO PRN (13:11)
[2022-07-22] MEDS: Tamsulosin 0.4 MG Cap.ER PO SCH (20:42)
[2022-07-22] MEDS: Ketorolac 10 MG Tab PO PRN (22:46)
[2022-07-23] MEDS: HYDROmorphone 2 MG Tab PO PRN (01:27)
[2022-07-23] MEDS: Meropenem 1 GM in Sodium Chloride 0.9% 100 ML IV SCH ×2 (01:39→11:23)
[2022-07-23] MEDS ORDERED: Melatonin 3 MG Tab PO PRN (01:44)
[2022-07-23] MEDS: Dextrose 5%-Lactated Ringers 1,000 ML IV SCH (01:57)
[2022-07-23] MEDS: Ketorolac 10 MG Tab PO PRN (04:45)
[2022-07-23 04:51] LABS: BASOPHILS PERCENT AUTO 0.1 % (0.1-1.3); EOSINOPHILS ABSOLUTE AUTO 0.06 K/uL (0.00-0.40); EOSINOPHILS PERCENT AUTO 0.8 % (0.0-5.4); HEMATOCRIT 36.4 % (38.4-49.7); HEMOGLOBIN 12.5 g/dL (12.9-16.9); IMMATURE GRAN ABSOLUTE AUTO 0.03 K/uL (0.00-0.23); IMMATURE GRAN PERCENT AUTO 0.4 % (0.0-0.7); LYMPHOCYTES ABSOLUTE AUTO 0.66 K/uL (0.8-3.3); LYMPHOCYTES PERCENT AUTO 8.5 % (11.4-47.7); MEAN CORPUSCULAR HEMOGLOBIN 29.8 pg (31.6-35.5); MEAN CORPUSCULAR HGB CONC 34.3 g/dL (31.6-35.5); MEAN CORPUSCULAR VOLUME 86.9 fL (81.4-99.0); MONOCYTES ABSOLUTE AUTO 0.59 K/uL (0.20-0.90); MONOCYTES PERCENT AUTO 7.6 % (3.3-12.6); NEUTROPHILS ABSOLUTE AUTO 6.44 K/uL (1.0-7.6); NEUTROPHILS PERCENT AUTO 82.6 % (40.0-78.1); PLATELET COUNT,PLT 154 K/uL (130-375); RED BLOOD CELL COUNT 4.19 M/uL (4.14-5.76); WHITE BLOOD CELL COUNT,WBC 7.8 K/uL (3.2-11.0)
[2022-07-23 04:54] LABS: BASOPHILS ABSOLUTE AUTO 0.01 K/uL (0.00-0.10)
[2022-07-23 05:10] LABS: A/G RATIO 0.7 (1.2-2.2); ALANINE AMINOTRANSFERASE,ALT 43 U/L (12-78); ALBUMIN 2.4 g/dL (3.4-5.0); ALKALINE PHOSPHATASE 61 U/L (46-116); ASPARTATE AMNIOTRANSFERASE,AST 55 U/L (15-37); BILIRUBIN TOTAL 1.1 mg/dL (0.2-1.0); BLOOD UREA NITROGEN,BUN 10 mg/dL (7-18); CALCIUM 8.2 mg/dL (8.5-10.1); CARBON DIOXIDE,CO2 23 mmol/L (21-32); CHLORIDE,CL 103 mmol/L (100-108); CREATININE 0.9 mg/dL (0.8-1.3); EST CRCL DRUG DOSING (CG) 55.25 mL/min; ESTIMATED GFR 87 mL/min (>60); GLUCOSE RANDOM 124 mg/dL (74-106); MAGNESIUM 1.9 mg/dL (1.8-2.4); PHOSPHORUS 1.7 mg/dL (2.5-4.9); POTASSIUM,K 3.7 mmol/L (3.6-5.2); SODIUM,NA 135 mmol/L (140-148)
[2022-07-23 05:16] LABS: ANION GAP 12.7 mmol/L (5.0-14.0)
[2022-07-23 07:35] VITALS: PULSE 75
[2022-07-23] MEDS: Pantoprazole 40 MG Tab.CR PO SCH (07:47)
[2022-07-23] MEDS: Bisacodyl 5 MG Tab PO SCH (08:07)
[2022-07-23] MEDS: Docusate Sodium 100 MG Cap PO SCH (08:07)
[2022-07-23 10:30] VITALS: BP 142/66
== END 2022-07-23 12:15 | disposition home or self-care (01) | DRG 417 ==
LOC: JP.ED 16:25 → JP.MS 19:15
PROVIDERS: ADMIT Surgery; ATTEND Surgery
PROC: 0FT44ZZ Resection of Gallbladder, Percutaneous Endoscopic Approach (ICD-10-PCS; principal; 2022-07-21)
PROC: 0W9G4ZZ Drainage of Peritoneal Cavity, Percutaneous Endoscopic Approach (ICD-10-PCS; 2022-07-21)
DX: K81.0 Acute cholecystitis (principal); E86.0 Dehydration; I48.91 Unspecified atrial fibrillation; I10 Essential (primary) hypertension; K65.1 Peritoneal abscess; K75.0 Abscess of liver; Z20.822 Contact with and (suspected) exposure to COVID-19; E78.00 Pure hypercholesterolemia, unspecified; Z86.73 Personal history of transient ischemic attack (TIA), and cerebral infarction without residual deficits; K21.9 Gastro-esophageal reflux disease without esophagitis; H54.7 Unspecified visual loss; B96.89 Other specified bacterial agents as the cause of diseases classified elsewhere; Z88.0 Allergy status to penicillin; Z88.8 Allergy status to other drugs, medicaments and biological substances; Z88.5 Allergy status to narcotic agent; Z79.82 Long term (current) use of aspirin; Z79.899 Other long term (current) drug therapy; Z98.890 Other specified postprocedural states; Z87.891 Personal history of nicotine dependence
CPT/HCPCS: 36415; 74176; 80053; 80305; 80307; 81001; 83605; 83690; 83735; 84145; 85027; 96361; 96375; 99285; J1170; J2405; J7030; 51702; 51798; 84100; 85025; 87070; 87075; 87077; 87186; 87205; 88304; 96365; A9270-GY; C9113; J0131; J0171; J0330; J0690; J0694; J1100; J1885; J2185; J2704; J2710; J2795; J3010; J3490; J7120; J7121; U0002

== ENCOUNTER 2022-07-26 12:45 | Inpatient (IN) | payer MEDICARE, BC ==
[2022-07-26 14:20] LABS: HEMOGLOBIN 12.5 g/dL (12.9-16.9); MEAN CORPUSCULAR HEMOGLOBIN 29.3 pg (31.6-35.5); MEAN CORPUSCULAR HGB CONC 33.8 g/dL (31.6-35.5); MEAN CORPUSCULAR VOLUME 86.9 fL (81.4-99.0); RED BLOOD CELL COUNT 4.26 M/uL (4.14-5.76); WHITE BLOOD CELL COUNT,WBC 8.5 K/uL (3.2-11.0)
[2022-07-26 14:49] LABS: A/G RATIO 0.8 (1.2-2.2); ALANINE AMINOTRANSFERASE,ALT 80 U/L (12-78); ALBUMIN 2.9 g/dL (3.4-5.0); ALKALINE PHOSPHATASE 217 U/L (46-116); ASPARTATE AMNIOTRANSFERASE,AST 133 U/L (15-37); BILIRUBIN TOTAL 1.1 mg/dL (0.2-1.0); BLOOD UREA NITROGEN,BUN 5 mg/dL (7-18); CALCIUM 8.8 mg/dL (8.5-10.1); CARBON DIOXIDE,CO2 29 mmol/L (21-32); CHLORIDE,CL 103 mmol/L (100-108); CREATININE 0.7 mg/dL (0.8-1.3); EST CRCL DRUG DOSING (CG) 82.35 mL/min; ESTIMATED GFR 94 mL/min (>60); GLUCOSE RANDOM 115 mg/dL (74-106); POTASSIUM,K 4.3 mmol/L (3.6-5.2); PROTEIN TOTAL,TP 6.7 g/dL (6.4-8.2); SODIUM,NA 138 mmol/L (140-148)
[2022-07-26 14:54] LABS: ANION GAP 10.3 mmol/L (5.0-14.0)
[2022-07-26] MEDS ORDERED: Ciprofloxacin in D5W 400 MG in Premix Bag 1 BAG IV ONE ×2 (15:22)
[2022-07-26] MEDS ORDERED: metroNIDAZOLE/Normal Saline 500 MG in Premix Bag 1 BAG IV ONE (15:24)
[2022-07-26] MEDS ORDERED: Ondansetron 4 MG/2 ML SDV IV PRN (16:24)
[2022-07-26] MEDS ORDERED: HYDROmorphone 1 MG/ML Syringe IVPUSH PRN (16:24)
[2022-07-26] MEDS ORDERED: Sennosides/Docusate Sodium 50-8.6 MG Tab PO PRN (16:24)
[2022-07-26] MEDS ORDERED: Magnesium Hydroxide 400 MG/5 ML Susp 30 ML Cup PO PRN (16:24)
[2022-07-26] MEDS ORDERED: Ondansetron 4 MG Tab.DIS PO PRN (16:24)
[2022-07-26] MEDS ORDERED: Pantoprazole 40 MG Vial IV SCH (17:00)
[2022-07-26] MEDS ORDERED: Heparin Sodium 5,000 Units/ML Vial SUBCUT SCH (17:00)
[2022-07-26] MEDS ORDERED: Ciprofloxacin in D5W 400 MG in Premix Bag 1 BAG IV SCH ×2 (17:00)
[2022-07-26] MEDS ORDERED: metroNIDAZOLE/Normal Saline 500 MG in Premix Bag 1 BAG IV SCH (18:00)
[2022-07-26] MEDS: Lactated Ringers 1,000 ML IV SCH (18:12)
[2022-07-26] MEDS: Melatonin 3 MG Tab PO SCH (21:50)
[2022-07-26] MEDS: metroNIDAZOLE/Normal Saline 500 MG in Premix Bag 1 BAG IV SCH (21:51)
[2022-07-27] MEDS: Ciprofloxacin in D5W 400 MG in Premix Bag 1 BAG IV SCH ×4 (04:32→16:03)
[2022-07-27 05:32] LABS: HEMATOCRIT 34.2 % (38.4-49.7); HEMOGLOBIN 11.4 g/dL (12.9-16.9); MEAN CORPUSCULAR HGB CONC 33.3 g/dL (31.6-35.5); RED BLOOD CELL COUNT 3.93 M/uL (4.14-5.76); WHITE BLOOD CELL COUNT,WBC 6.7 K/uL (3.2-11.0)
[2022-07-27 05:48] LABS: ANION GAP 9.6 mmol/L (5.0-14.0); CALCIUM 8.1 mg/dL (8.5-10.1); CREATININE 0.8 mg/dL (0.8-1.3); EST CRCL DRUG DOSING (CG) 72.06 mL/min; POTASSIUM,K 3.6 mmol/L (3.6-5.2)
[2022-07-27] MEDS: metroNIDAZOLE/Normal Saline 500 MG in Premix Bag 1 BAG IV SCH ×3 (06:07→22:20)
[2022-07-27] MEDS: Lactated Ringers 1,000 ML IV SCH ×2 (06:08→18:58)
[2022-07-27] MEDS: Acetaminophen 325 MG Tab PO PRN ×3 (10:24→22:21)
[2022-07-27] MEDS: Heparin Sodium 5,000 Units/ML Vial SUBCUT SCH ×2 (12:50→23:47)
[2022-07-27] MEDS: HYDROmorphone 0.5 MG/0.5 ML Syringe IVPUSH PRN ×2 (12:50→17:34)
[2022-07-27] MEDS ORDERED: Pantoprazole 40 MG Tab.CR PO SCH (16:30)
[2022-07-27] MEDS: Melatonin 3 MG Tab PO SCH (20:40)
[2022-07-28] MEDS: HYDROmorphone 0.5 MG/0.5 ML Syringe IVPUSH PRN (04:20)
[2022-07-28] MEDS: Ciprofloxacin in D5W 400 MG in Premix Bag 1 BAG IV SCH ×2 (04:20)
[2022-07-28] MEDS: metroNIDAZOLE/Normal Saline 500 MG in Premix Bag 1 BAG IV SCH (05:25)
[2022-07-28] MEDS: Lactated Ringers 1,000 ML IV SCH (07:52)
[2022-07-28 08:07] VITALS: BP 159/68; PULSE 69
[2022-07-28] MEDS: Acetaminophen 325 MG Tab PO PRN (10:03)
== END 2022-07-28 10:30 | disposition home or self-care (01) | DRG 921 ==
LOC: JP.ED 12:45 → JP.MS 16:24
PROVIDERS: ADMIT Internal Medicine; ATTEND Internal Medicine
DX: R10.10 Upper abdominal pain, unspecified (principal); I48.91 Unspecified atrial fibrillation; T81.82XA Emphysema (subcutaneous) resulting from a procedure, initial encounter; F03.90 Unspecified dementia, unspecified severity, without behavioral disturbance, psychotic disturbance, mood disturbance, and anxiety; H91.90 Unspecified hearing loss, unspecified ear; I10 Essential (primary) hypertension; D50.9 Iron deficiency anemia, unspecified; E78.00 Pure hypercholesterolemia, unspecified; Y83.8 Other surgical procedures as the cause of abnormal reaction of the patient, or of later complication, without mention of misadventure at the time of the procedure; K21.9 Gastro-esophageal reflux disease without esophagitis; Z20.822 Contact with and (suspected) exposure to COVID-19; Z90.49 Acquired absence of other specified parts of digestive tract; Z88.0 Allergy status to penicillin; Z88.8 Allergy status to other drugs, medicaments and biological substances; Z88.5 Allergy status to narcotic agent; Z79.82 Long term (current) use of aspirin; Z79.899 Other long term (current) drug therapy; Z86.73 Personal history of transient ischemic attack (TIA), and cerebral infarction without residual deficits; Z90.89 Acquired absence of other organs; Z98.890 Other specified postprocedural states
CPT/HCPCS: 36415; 74176; 74176-26; 80048; 80053; 83605; 83690; 84145; 85027; 87040; 96365; 96368; 99223; 99233; 99285; 99285-25; A9270-GY; C9113; J0744; J1170; J1644; J3490; J7120; Q0162; U0002

== ENCOUNTER 2022-07-31 11:57 | Emergency (ER) | payer MEDICARE, BC ==
[2022-07-31 13:52] LABS: BASOPHILS ABSOLUTE AUTO 0.03 K/uL (0.00-0.10); BASOPHILS PERCENT AUTO 0.4 % (0.1-1.3); EOSINOPHILS ABSOLUTE AUTO 0.04 K/uL (0.00-0.40); EOSINOPHILS PERCENT AUTO 0.6 % (0.0-5.4); HEMATOCRIT 38.9 % (38.4-49.7); HEMOGLOBIN 12.8 g/dL (12.9-16.9); IMMATURE GRAN PERCENT AUTO 0.3 % (0.0-0.7); LYMPHOCYTES ABSOLUTE AUTO 0.56 K/uL (0.8-3.3); LYMPHOCYTES PERCENT AUTO 7.8 % (11.4-47.7); MEAN CORPUSCULAR HEMOGLOBIN 29.1 pg (31.6-35.5); MEAN CORPUSCULAR HGB CONC 32.9 g/dL (31.6-35.5); MEAN CORPUSCULAR VOLUME 88.4 fL (81.4-99.0); MONOCYTES ABSOLUTE AUTO 0.59 K/uL (0.20-0.90); MONOCYTES PERCENT AUTO 8.2 % (3.3-12.6); NEUTROPHILS ABSOLUTE AUTO 5.92 K/uL (1.0-7.6); NEUTROPHILS PERCENT AUTO 82.7 % (40.0-78.1); PLATELET COUNT,PLT 294 K/uL (130-375); WHITE BLOOD CELL COUNT,WBC 7.2 K/uL (3.2-11.0)
[2022-07-31 13:54] VITALS: BP 152/83; PULSE 76
[2022-07-31 13:55] LABS: IMMATURE GRAN ABSOLUTE AUTO 0.02 K/uL (0.00-0.23)
[2022-07-31 14:20] LABS: A/G RATIO 0.9 (1.2-2.2); ALANINE AMINOTRANSFERASE,ALT 138 U/L (12-78); ALBUMIN 3.3 g/dL (3.4-5.0); ALKALINE PHOSPHATASE 450 U/L (46-116); ASPARTATE AMNIOTRANSFERASE,AST 250 U/L (15-37); BILIRUBIN TOTAL 1.1 mg/dL (0.2-1.0); BLOOD UREA NITROGEN,BUN 4 mg/dL (7-18); CALCIUM 8.8 mg/dL (8.5-10.1); CARBON DIOXIDE,CO2 28 mmol/L (21-32); CHLORIDE,CL 103 mmol/L (100-108); CREATININE 0.8 mg/dL (0.8-1.3); ESTIMATED GFR 90 mL/min (>60); GLUCOSE RANDOM 116 mg/dL (74-106); POTASSIUM,K 3.7 mmol/L (3.6-5.2); SODIUM,NA 138 mmol/L (140-148)
[2022-07-31 14:21] LABS: ANION GAP 10.7 mmol/L (5.0-14.0)
[2022-07-31 14:22] LABS: TROPONIN I HIGH SENSITIVITY 7.9 pg/mL (<=60.3)
[2022-07-31 14:25] LABS: APPEARANCE,URINE CLEAR (CLEAR); BILIRUBIN,URINE NEGATIVE (NEGATIVE); COLOR,URINE YELLOW (YELLOW); GLUCOSE,URINE NEGATIVE (NEGATIVE); KETONES,URINE NEGATIVE (NEGATIVE); LEUKOCYTE ESTERASE,URINE NEGATIVE (NEGATIVE); NITRITE,URINE NEGATIVE (NEGATIVE); OCCULT BLOOD,URINE NEGATIVE (NEGATIVE); PROTEIN,URINE NEGATIVE (NEGATIVE); UROBILINOGEN,URINE 0.2 EU/dL (0.2-1.0)
[2022-07-31 14:40] LABS: RBC,URINE 0-5 (0-5); WBC,URINE 0-5 (0-5)
[2022-07-31 14:41] LABS: AMORPHOUS SEDIMENT,URINE NOT SEEN; BACTERIA,URINE RARE; EPITHELIAL CELLS,URINE NOT SEEN; MUCUS,URINE NOT SEEN
== END 2022-07-31 16:47 | disposition home or self-care (01) ==
LOC: JP.ED 11:57
DX: R10.10 Upper abdominal pain, unspecified (principal); R10.13 Epigastric pain; Z88.0 Allergy status to penicillin; Z88.8 Allergy status to other drugs, medicaments and biological substances; Z88.5 Allergy status to narcotic agent; Z79.82 Long term (current) use of aspirin; Z79.899 Other long term (current) drug therapy; Z86.73 Personal history of transient ischemic attack (TIA), and cerebral infarction without residual deficits
CPT/HCPCS: 36415; 80053; 81001; 82150; 83690; 84484; 85025; 93005; 99284

== ENCOUNTER 2022-08-16 00:13 | Emergency (ER) | payer MEDICARE, BC ==
[2022-08-16] MEDS ORDERED: Lidocaine 1% with EPINEPHrine 1:100,000 50 ML MDV SUBCUT ONE (00:33)
[2022-08-16 00:52] VITALS: BP 153/79; PULSE 79
== END 2022-08-16 01:10 | disposition home or self-care (01) ==
LOC: JP.ED 00:13
DX: S91.312A Laceration without foreign body, left foot, initial encounter (principal); I48.91 Unspecified atrial fibrillation; I87.8 Other specified disorders of veins; E78.00 Pure hypercholesterolemia, unspecified; I10 Essential (primary) hypertension; K21.9 Gastro-esophageal reflux disease without esophagitis; Z79.82 Long term (current) use of aspirin; Z79.899 Other long term (current) drug therapy; Z88.0 Allergy status to penicillin; Z88.8 Allergy status to other drugs, medicaments and biological substances; Z88.5 Allergy status to narcotic agent; X58.XXXA Exposure to other specified factors, initial encounter
CPT/HCPCS: 12001; 99284

== ENCOUNTER 2022-08-16 06:55 | Inpatient (IN) | payer MEDICARE, BC ==
[~2022-08-16 06:55] MED LIST: Acetaminophen 1,000 MG/100 ML Infusion Bottle Premix ONE; Bupivacaine 0.5% 50 ML MDV ONE; Glycopyrrolate 0.2 MG/ML 5 ML MDV ONE; Lidocaine 2% 5 ML SDV ONE; Ondansetron 4 MG/2 ML SDV ONE; Propofol 200 MG/20 ML SDV ONE; Rocuronium 50 MG/5 ML Vial ONE; fentaNYL 250 MCG/5 ML SDV ONE
[2022-08-16] MEDS ORDERED: Dextrose 5%-Lactated Ringers 1,000 ML IV SCH (07:30)
[2022-08-16 07:36] LABS: HEMATOCRIT 33.7 % (38.4-49.7); HEMOGLOBIN 11.3 g/dL (12.9-16.9); MEAN CORPUSCULAR HEMOGLOBIN 29.4 pg (31.6-35.5); MEAN CORPUSCULAR HGB CONC 33.5 g/dL (31.6-35.5); MEAN CORPUSCULAR VOLUME 87.8 fL (81.4-99.0); RED BLOOD CELL COUNT 3.84 M/uL (4.14-5.76)
[2022-08-16] MEDS ORDERED: Ondansetron 4 MG/2 ML SDV IVPUSH PRN (07:36)
[2022-08-16] MEDS ORDERED: Naloxone 0.4 MG/ML SDV IVPUSH PRN (07:36)
[2022-08-16] MEDS ORDERED: diphenhydrAMINE 25 MG Cap PO PRN (07:36)
[2022-08-16] MEDS ORDERED: diphenhydrAMINE 50 MG/ML SDV IVPUSH PRN (07:36)
[2022-08-16] MEDS ORDERED: cefOXitin 2 GM in Sodium Chloride 0.9% 50 ML IV ONE (08:00)
[2022-08-16] MEDS ORDERED: Indocyanine Green 25 MG SDV IV ONE (08:00)
[2022-08-16 08:04] LABS: ALANINE AMINOTRANSFERASE,ALT 57 U/L (12-78); ALBUMIN 3.1 g/dL (3.4-5.0); ALKALINE PHOSPHATASE 197 U/L (46-116); ASPARTATE AMNIOTRANSFERASE,AST 26 U/L (15-37); BILIRUBIN TOTAL 1.1 mg/dL (0.2-1.0); BLOOD UREA NITROGEN,BUN 5 mg/dL (7-18); CALCIUM 8.6 mg/dL (8.5-10.1); CARBON DIOXIDE,CO2 25 mmol/L (21-32); CHLORIDE,CL 105 mmol/L (100-108); CREATININE 0.8 mg/dL (0.8-1.3); ESTIMATED GFR 90 mL/min (>60); GLUCOSE RANDOM 116 mg/dL (74-106); MAGNESIUM 2.1 mg/dL (1.8-2.4); PHOSPHORUS 3.6 mg/dL (2.5-4.9); POTASSIUM,K 3.8 mmol/L (3.6-5.2); PRO B-TYPE NATRIUR PEPT,BNPPRO 161 pg/mL (5-450); PROTEIN TOTAL,TP 6.1 g/dL (6.4-8.2); SODIUM,NA 136 mmol/L (140-148)
[2022-08-16 08:11] LABS: ANION GAP 9.8 mmol/L (5.0-14.0)
[2022-08-16] MEDS ORDERED: Ketamine 500 MG/5 ML MDV IV SCH (08:45)
[2022-08-16] MEDS ORDERED: Ropivacaine 34 ML, dexAMETHasone 8 MG, EPINEPHrine 0.4 MG, Sodium Chloride 0.9% 43.6 ML NERVRT SCH ×4 (08:45)
[2022-08-16] MEDS ORDERED: Ketamine 20 MG in Sodium Chloride 0.9% 19.8 ML IV SCH (08:45)
[2022-08-16] MEDS ORDERED: Meropenem 500 MG SDV ONE (09:30)
[2022-08-16] MEDS: HYDROmorphone/Normal Saline 6 MG/30 ML PCA Vial IV PRN ×3 (09:57→23:17)
[2022-08-16] MEDS ORDERED: Phenylephrine 1% 10 MG/ML SDV ONE (10:00)
[2022-08-16] MEDS ORDERED: Dexamethasone 4 MG/ML SDV ONE (10:13)
[2022-08-16] MEDS ORDERED: Neostigmine Methylsulfate 1 MG/ML 5 ML Syringe ONE (10:15)
[2022-08-16] MEDS ORDERED: fentaNYL 100 MCG/2 ML SDV ONE (10:20)
[2022-08-16] MEDS: Dextrose 5%-Lactated Ringers 1,000 ML IV SCH ×2 (14:07→23:00)
[2022-08-16] MEDS: cefOXitin 2 GM in Sodium Chloride 0.9% 50 ML IV SCH ×2 (14:07→20:34)
[2022-08-16] MEDS: Pantoprazole 40 MG Vial IVPUSH SCH (14:07)
[2022-08-16] MEDS: Ondansetron 4 MG/2 ML SDV IVPUSH PRN ×2 (15:34→20:47)
[2022-08-16] MEDS: Tamsulosin 0.4 MG Cap.ER PO SCH (20:35)
[2022-08-16] MEDS: Melatonin 3 MG Tab PO PRN (23:01)
[2022-08-16] MEDS: Cyclobenzaprine 10 MG Tab PO PRN (23:01)
[2022-08-17] MEDS: LORazepam 2 MG/ML SDV IVPUSH PRN (01:03)
[2022-08-17] MEDS: cefOXitin 2 GM in Sodium Chloride 0.9% 50 ML IV SCH ×4 (02:23→20:03)
[2022-08-17 04:27] LABS: BASOPHILS PERCENT AUTO 0.1 % (0.1-1.3); HEMATOCRIT 32.7 % (38.4-49.7); HEMOGLOBIN 10.9 g/dL (12.9-16.9); IMMATURE GRAN PERCENT AUTO 0.7 % (0.0-0.7); LYMPHOCYTES PERCENT AUTO 4.4 % (11.4-47.7); MEAN CORPUSCULAR HGB CONC 33.3 g/dL (31.6-35.5); MONOCYTES ABSOLUTE AUTO 1.05 K/uL (0.20-0.90); MONOCYTES PERCENT AUTO 7.7 % (3.3-12.6); NEUTROPHILS ABSOLUTE AUTO 11.91 K/uL (1.0-7.6); NEUTROPHILS PERCENT AUTO 87.1 % (40.0-78.1); PLATELET COUNT,PLT 172 K/uL (130-375); RED BLOOD CELL COUNT 3.76 M/uL (4.14-5.76); WHITE BLOOD CELL COUNT,WBC 13.7 K/uL (3.2-11.0)
[2022-08-17 04:29] LABS: BASOPHILS ABSOLUTE AUTO 0.01 K/uL (0.00-0.10)
[2022-08-17 04:46] LABS: A/G RATIO 0.9 (1.2-2.2); ALANINE AMINOTRANSFERASE,ALT 51 U/L (12-78); ALBUMIN 2.7 g/dL (3.4-5.0); ALKALINE PHOSPHATASE 166 U/L (46-116); ASPARTATE AMNIOTRANSFERASE,AST 24 U/L (15-37); BILIRUBIN TOTAL 1.4 mg/dL (0.2-1.0); BLOOD UREA NITROGEN,BUN 5 mg/dL (7-18); CALCIUM 7.9 mg/dL (8.5-10.1); CARBON DIOXIDE,CO2 26 mmol/L (21-32); CHLORIDE,CL 96 mmol/L (100-108); CREATININE 0.9 mg/dL (0.8-1.3); EST CRCL DRUG DOSING (CG) 62.22 mL/min; ESTIMATED GFR 87 mL/min (>60); GLUCOSE RANDOM 177 mg/dL (74-106); MAGNESIUM 1.7 mg/dL (1.8-2.4); PHOSPHORUS 2.5 mg/dL (2.5-4.9); POTASSIUM,K 4.3 mmol/L (3.6-5.2); PROTEIN TOTAL,TP 5.8 g/dL (6.4-8.2); SODIUM,NA 130 mmol/L (140-148)
[2022-08-17 04:58] LABS: ANION GAP 12.3 mmol/L (5.0-14.0)
[2022-08-17] MEDS ORDERED: Potassium Phosphates 3 mMole/ML 15 ML SDV IV ONE (07:41)
[2022-08-17] MEDS ORDERED: Potassium Phos in 0.9 % NaCl 15 MMOL in Premix Bag 1 BAG IV ONE ×4 (08:00→14:00)
[2022-08-17] MEDS: Cyclobenzaprine 10 MG Tab PO PRN ×2 (08:33→17:51)
[2022-08-17] MEDS: Aspirin 81 MG Tab.EC PO SCH (08:34)
[2022-08-17] MEDS: Dextrose 5%-0.9% NaCl with KCl 1,000 ML IV SCH ×2 (09:15→23:19)
[2022-08-17] MEDS: Magnesium Sulfate/Water 2 GM/50 ML BAG IV SCH ×3 (11:59→22:12)
[2022-08-17] MEDS: HYDROmorphone/Normal Saline 6 MG/30 ML PCA Vial IV PRN ×2 (12:13→19:54)
[2022-08-17] MEDS: Pantoprazole 40 MG Vial IVPUSH SCH (14:25)
[2022-08-17] MEDS: Tamsulosin 0.4 MG Cap.ER PO SCH (20:07)
[2022-08-18] MEDS: Cyclobenzaprine 10 MG Tab PO PRN ×2 (02:46→20:25)
[2022-08-18 04:12] LABS: HEMATOCRIT 35.1 % (38.4-49.7); HEMOGLOBIN 11.6 g/dL (12.9-16.9); MEAN CORPUSCULAR HEMOGLOBIN 29.1 pg (31.6-35.5); RED BLOOD CELL COUNT 3.99 M/uL (4.14-5.76); WHITE BLOOD CELL COUNT,WBC 8.2 K/uL (3.2-11.0)
[2022-08-18] MEDS: Magnesium Sulfate/Water 2 GM/50 ML BAG IV SCH ×4 (04:16→22:27)
[2022-08-18 04:55] LABS: A/G RATIO 0.8 (1.2-2.2); ALANINE AMINOTRANSFERASE,ALT 46 U/L (12-78); ALBUMIN 2.7 g/dL (3.4-5.0); ALKALINE PHOSPHATASE 150 U/L (46-116); ASPARTATE AMNIOTRANSFERASE,AST 28 U/L (15-37); BILIRUBIN TOTAL 1.3 mg/dL (0.2-1.0); BLOOD UREA NITROGEN,BUN 5 mg/dL (7-18); CALCIUM 7.9 mg/dL (8.5-10.1); CARBON DIOXIDE,CO2 26 mmol/L (21-32); CHLORIDE,CL 97 mmol/L (100-108); CREATININE 0.8 mg/dL (0.8-1.3); EST CRCL DRUG DOSING (CG) 69.83 mL/min; ESTIMATED GFR 90 mL/min (>60); GLUCOSE RANDOM 132 mg/dL (74-106); PHOSPHORUS 2.5 mg/dL (2.5-4.9); POTASSIUM,K 4.7 mmol/L (3.6-5.2); PRO B-TYPE NATRIUR PEPT,BNPPRO 714 pg/mL (5-450); PROTEIN TOTAL,TP 5.9 g/dL (6.4-8.2); SODIUM,NA 127 mmol/L (140-148)
[2022-08-18 04:58] LABS: ANION GAP 8.7 mmol/L (5.0-14.0)
[2022-08-18] MEDS ORDERED: Meropenem 500 MG SDV ONE (06:21)
[2022-08-18] MEDS: LORazepam 2 MG/ML SDV IVPUSH PRN ×2 (06:42→21:03)
[2022-08-18] MEDS ORDERED: fentaNYL 50 MCG/ML SDV ONE (07:00)
[2022-08-18] MEDS ORDERED: Propofol 200 MG/20 ML SDV ONE (07:02)
[2022-08-18] MEDS ORDERED: Ropivacaine 34 ML, dexAMETHasone 8 MG, EPINEPHrine 0.4 MG, Sodium Chloride 0.9% 43.6 ML NERVRT SCH ×4 (07:30)
[2022-08-18] MEDS ORDERED: Lidocaine 1% 50 ML MDV INJECT ONE (07:36)
[2022-08-18] MEDS ORDERED: Pseudoephedrine 30 MG Tab PO SCH (10:00)
[2022-08-18] MEDS: Dextrose 5%-0.9% NaCl with KCl 1,000 ML IV SCH ×2 (11:41→20:27)
[2022-08-18] MEDS: Aspirin 81 MG Tab.EC PO SCH (11:46)
[2022-08-18] MEDS: Bisacodyl 5 MG Tab PO SCH ×2 (11:47→20:26)
[2022-08-18] MEDS: Docusate Sodium 100 MG Cap PO SCH ×2 (11:47→20:26)
[2022-08-18] MEDS: Pseudoephedrine 30 MG Tab PO SCH ×3 (11:47→21:03)
[2022-08-18] MEDS: Pantoprazole 40 MG Vial IVPUSH SCH (15:19)
[2022-08-18] MEDS: Acetaminophen 325 MG Tab PO PRN (15:23)
[2022-08-18] MEDS: HYDROmorphone/Normal Saline 6 MG/30 ML PCA Vial IV PRN (18:37)
[2022-08-18] MEDS: Tamsulosin 0.4 MG Cap.ER PO SCH (20:26)
[2022-08-19] MEDS: Magnesium Sulfate/Water 2 GM/50 ML BAG IV SCH (05:02)
[2022-08-19] MEDS: Dextrose 5%-0.9% NaCl with KCl 1,000 ML IV SCH ×2 (06:39→16:27)
[2022-08-19] MEDS ORDERED: Tamsulosin 0.4 MG Cap.ER PO ONE (09:00)
[2022-08-19] MEDS: Aspirin 81 MG Tab.EC PO SCH (09:22)
[2022-08-19] MEDS: Acetaminophen 325 MG Tab PO PRN (09:25)
[2022-08-19] MEDS: HYDROmorphone 2 MG Tab PO PRN ×3 (11:07→21:57)
[2022-08-19] MEDS ORDERED: Lidocaine 2% Jelly 10 ML Urojet MUCMEM ONE (16:19)
[2022-08-19] MEDS: Pantoprazole 40 MG Tab.CR PO SCH (16:27)
[2022-08-19] MEDS: Cyclobenzaprine 10 MG Tab PO PRN (19:38)
[2022-08-19] MEDS: Melatonin 3 MG Tab PO PRN (20:36)
[2022-08-19] MEDS: Tamsulosin 0.4 MG Cap.ER PO SCH (20:37)
[2022-08-19] MEDS: LORazepam 2 MG/ML SDV IVPUSH PRN (23:22)
[2022-08-20] MEDS: Dextrose 5%-0.9% NaCl with KCl 1,000 ML IV SCH ×2 (01:30→17:33)
[2022-08-20] MEDS: LORazepam 2 MG/ML SDV IVPUSH PRN (02:34)
[2022-08-20 04:46] LABS: BASOPHILS ABSOLUTE AUTO 0.05 K/uL (0.00-0.10); BASOPHILS PERCENT AUTO 0.7 % (0.1-1.3); EOSINOPHILS ABSOLUTE AUTO 0.34 K/uL (0.00-0.40); EOSINOPHILS PERCENT AUTO 4.5 % (0.0-5.4); HEMATOCRIT 32.1 % (38.4-49.7); HEMOGLOBIN 10.6 g/dL (12.9-16.9); IMMATURE GRAN ABSOLUTE AUTO 0.03 K/uL (0.00-0.23); IMMATURE GRAN PERCENT AUTO 0.4 % (0.0-0.7); LYMPHOCYTES ABSOLUTE AUTO 0.69 K/uL (0.8-3.3); LYMPHOCYTES PERCENT AUTO 9.2 % (11.4-47.7); MEAN CORPUSCULAR HEMOGLOBIN 28.8 pg (31.6-35.5); MEAN CORPUSCULAR VOLUME 87.2 fL (81.4-99.0); MONOCYTES ABSOLUTE AUTO 0.77 K/uL (0.20-0.90); MONOCYTES PERCENT AUTO 10.2 % (3.3-12.6); NEUTROPHILS ABSOLUTE AUTO 5.66 K/uL (1.0-7.6); PLATELET COUNT,PLT 154 K/uL (130-375); RED BLOOD CELL COUNT 3.68 M/uL (4.14-5.76); WHITE BLOOD CELL COUNT,WBC 7.5 K/uL (3.2-11.0)
[2022-08-20] MEDS: Cyclobenzaprine 10 MG Tab PO PRN (05:03)
[2022-08-20] MEDS: Acetaminophen 325 MG Tab PO PRN (05:04)
[2022-08-20 05:15] LABS: A/G RATIO 0.8 (1.2-2.2); ALANINE AMINOTRANSFERASE,ALT 40 U/L (12-78); ALBUMIN 2.4 g/dL (3.4-5.0); ALKALINE PHOSPHATASE 123 U/L (46-116); ASPARTATE AMNIOTRANSFERASE,AST 21 U/L (15-37); BILIRUBIN TOTAL 1.3 mg/dL (0.2-1.0); BLOOD UREA NITROGEN,BUN 1 mg/dL (7-18); CALCIUM 7.8 mg/dL (8.5-10.1); CARBON DIOXIDE,CO2 22 mmol/L (21-32); CHLORIDE,CL 106 mmol/L (100-108); CREATININE 0.7 mg/dL (0.8-1.3); ESTIMATED GFR 94 mL/min (>60); GLUCOSE RANDOM 122 mg/dL (74-106); MAGNESIUM 2.2 mg/dL (1.8-2.4); PHOSPHORUS 2.7 mg/dL (2.5-4.9); POTASSIUM,K 4.3 mmol/L (3.6-5.2); PRO B-TYPE NATRIUR PEPT,BNPPRO 237 pg/mL (5-450); PROTEIN TOTAL,TP 5.5 g/dL (6.4-8.2); SODIUM,NA 135 mmol/L (140-148)
[2022-08-20 05:18] LABS: ANION GAP 11.3 mmol/L (5.0-14.0)
[2022-08-20] MEDS: Docusate Sodium 100 MG Cap PO SCH ×2 (08:54→20:28)
[2022-08-20] MEDS: Phenazopyridine 95 MG Tab PO SCH ×3 (08:55→20:29)
[2022-08-20] MEDS: Potassium Phos in 0.9 % NaCl 15 MMOL in Premix Bag 1 BAG IV SCH ×4 (08:55→12:15)
[2022-08-20] MEDS: Aspirin 81 MG Tab.EC PO SCH (08:55)
[2022-08-20] MEDS: Tamsulosin 0.4 MG Cap.ER PO SCH ×2 (08:55→20:29)
[2022-08-20] MEDS: Pantoprazole 40 MG Tab.CR PO SCH (16:17)
[2022-08-20] MEDS: HYDROmorphone 2 MG Tab PO PRN (20:31)
[2022-08-21] MEDS: Dextrose 5%-0.9% NaCl with KCl 1,000 ML IV SCH (03:33)
[2022-08-21] MEDS: LORazepam 2 MG/ML SDV IVPUSH PRN (03:34)
[2022-08-21] MEDS: HYDROmorphone 2 MG Tab PO PRN ×4 (03:34→23:42)
[2022-08-21 04:40] LABS: BASOPHILS ABSOLUTE AUTO 0.06 K/uL (0.00-0.10); EOSINOPHILS ABSOLUTE AUTO 0.52 K/uL (0.00-0.40); EOSINOPHILS PERCENT AUTO 8.7 % (0.0-5.4); HEMATOCRIT 31.5 % (38.4-49.7); HEMOGLOBIN 10.4 g/dL (12.9-16.9); IMMATURE GRAN ABSOLUTE AUTO 0.03 K/uL (0.00-0.23); IMMATURE GRAN PERCENT AUTO 0.5 % (0.0-0.7); LYMPHOCYTES PERCENT AUTO 13.4 % (11.4-47.7); MEAN CORPUSCULAR VOLUME 87.7 fL (81.4-99.0); MONOCYTES ABSOLUTE AUTO 0.72 K/uL (0.20-0.90); MONOCYTES PERCENT AUTO 12.1 % (3.3-12.6); NEUTROPHILS ABSOLUTE AUTO 3.83 K/uL (1.0-7.6); NEUTROPHILS PERCENT AUTO 64.3 % (40.0-78.1); PLATELET COUNT,PLT 185 K/uL (130-375); RED BLOOD CELL COUNT 3.59 M/uL (4.14-5.76)
[2022-08-21 05:04] LABS: A/G RATIO 0.8 (1.2-2.2); ALANINE AMINOTRANSFERASE,ALT 40 U/L (12-78); ALBUMIN 2.4 g/dL (3.4-5.0); ALKALINE PHOSPHATASE 122 U/L (46-116); ASPARTATE AMNIOTRANSFERASE,AST 23 U/L (15-37); BILIRUBIN TOTAL 1.1 mg/dL (0.2-1.0); BLOOD UREA NITROGEN,BUN 3 mg/dL (7-18); CALCIUM 8.1 mg/dL (8.5-10.1); CARBON DIOXIDE,CO2 23 mmol/L (21-32); CHLORIDE,CL 105 mmol/L (100-108); CREATININE 0.7 mg/dL (0.8-1.3); ESTIMATED GFR 94 mL/min (>60); GLUCOSE RANDOM 104 mg/dL (74-106); POTASSIUM,K 4.3 mmol/L (3.6-5.2); PRO B-TYPE NATRIUR PEPT,BNPPRO 252 pg/mL (5-450); PROTEIN TOTAL,TP 5.5 g/dL (6.4-8.2); SODIUM,NA 134 mmol/L (140-148)
[2022-08-21 05:05] LABS: ANION GAP 10.3 mmol/L (5.0-14.0)
[2022-08-21] MEDS: Aspirin 81 MG Tab.EC PO SCH (08:31)
[2022-08-21] MEDS: Tamsulosin 0.4 MG Cap.ER PO SCH ×2 (08:31→22:26)
[2022-08-21] MEDS: Docusate Sodium 100 MG Cap PO SCH ×2 (08:31→22:26)
[2022-08-21] MEDS: Phenazopyridine 95 MG Tab PO SCH ×3 (08:31→22:26)
[2022-08-21] MEDS: Dextrose 5%-Lactated Ringers 1,000 ML IV SCH ×2 (13:22→14:02)
[2022-08-21] MEDS: Cyclobenzaprine 10 MG Tab PO PRN (16:29)
[2022-08-21] MEDS: Pantoprazole 40 MG Tab.CR PO SCH (16:29)
[2022-08-22] MEDS: Cyclobenzaprine 10 MG Tab PO PRN ×2 (02:21→18:13)
[2022-08-22] MEDS: HYDROmorphone 2 MG Tab PO PRN ×2 (08:14→17:33)
[2022-08-22] MEDS: Phenazopyridine 95 MG Tab PO SCH ×3 (08:15→20:59)
[2022-08-22] MEDS: Docusate Sodium 100 MG Cap PO SCH ×2 (08:15→20:59)
[2022-08-22] MEDS: Aspirin 81 MG Tab.EC PO SCH (08:15)
[2022-08-22] MEDS: Tamsulosin 0.4 MG Cap.ER PO SCH ×2 (08:15→20:59)
[2022-08-22] MEDS: Pantoprazole 40 MG Tab.CR PO SCH (15:50)
[2022-08-22] MEDS: Pseudoephedrine 30 MG Tab PO PRN (18:08)
[2022-08-22] MEDS: LORazepam 2 MG/ML SDV IVPUSH PRN (19:40)
[2022-08-22] MEDS: Melatonin 3 MG Tab PO PRN (21:07)
[2022-08-22] MEDS: Dextrose 5%-Lactated Ringers 1,000 ML IV SCH (21:16)
[2022-08-23] MEDS: HYDROmorphone 2 MG Tab PO PRN ×5 (00:47→18:10)
[2022-08-23] MEDS: Tamsulosin 0.4 MG Cap.ER PO SCH ×2 (08:13→21:57)
[2022-08-23] MEDS: Aspirin 81 MG Tab.EC PO SCH (08:13)
[2022-08-23] MEDS: Phenazopyridine 95 MG Tab PO SCH ×3 (08:13→21:57)
[2022-08-23] MEDS: Docusate Sodium 100 MG Cap PO SCH ×2 (08:13→21:57)
[2022-08-23] MEDS: Terazosin 1 MG Cap PO SCH ×2 (09:11→21:57)
[2022-08-23] MEDS: Pseudoephedrine 30 MG Tab PO PRN (14:23)
[2022-08-23] MEDS: Dextrose 5%-Lactated Ringers 1,000 ML IV SCH (15:41)
[2022-08-23] MEDS: Pantoprazole 40 MG Tab.CR PO SCH (16:40)
[2022-08-23] MEDS: Cyclobenzaprine 10 MG Tab PO PRN (19:52)
[2022-08-24] MEDS: HYDROmorphone 2 MG Tab PO PRN ×2 (02:09→08:26)
[2022-08-24 04:41] LABS: HEMATOCRIT 32.5 % (38.4-49.7); HEMOGLOBIN 10.8 g/dL (12.9-16.9); MEAN CORPUSCULAR HEMOGLOBIN 28.7 pg (31.6-35.5); MEAN CORPUSCULAR HGB CONC 33.2 g/dL (31.6-35.5); MEAN CORPUSCULAR VOLUME 86.4 fL (81.4-99.0); RED BLOOD CELL COUNT 3.76 M/uL (4.14-5.76); WHITE BLOOD CELL COUNT,WBC 9.9 K/uL (3.2-11.0)
[2022-08-24 05:10] LABS: A/G RATIO 0.8 (1.2-2.2); ALANINE AMINOTRANSFERASE,ALT 45 U/L (12-78); ALBUMIN 2.6 g/dL (3.4-5.0); ALKALINE PHOSPHATASE 119 U/L (46-116); ASPARTATE AMNIOTRANSFERASE,AST 27 U/L (15-37); BILIRUBIN TOTAL 0.9 mg/dL (0.2-1.0); BLOOD UREA NITROGEN,BUN 5 mg/dL (7-18); CALCIUM 8.3 mg/dL (8.5-10.1); CARBON DIOXIDE,CO2 26 mmol/L (21-32); CHLORIDE,CL 102 mmol/L (100-108); CREATININE 0.9 mg/dL (0.8-1.3); EST CRCL DRUG DOSING (CG) 62.07 mL/min; ESTIMATED GFR 87 mL/min (>60); GLUCOSE RANDOM 119 mg/dL (74-106); MAGNESIUM 1.9 mg/dL (1.8-2.4); PHOSPHORUS 3.8 mg/dL (2.5-4.9); POTASSIUM,K 3.9 mmol/L (3.6-5.2); PRO B-TYPE NATRIUR PEPT,BNPPRO 91 pg/mL (5-450); PROTEIN TOTAL,TP 5.8 g/dL (6.4-8.2); SODIUM,NA 135 mmol/L (140-148)
[2022-08-24 05:12] LABS: ANION GAP 10.9 mmol/L (5.0-14.0)
[2022-08-24] MEDS: Cyclobenzaprine 10 MG Tab PO PRN (08:26)
[2022-08-24] MEDS: Aspirin 81 MG Tab.EC PO SCH (08:27)
[2022-08-24] MEDS: Docusate Sodium 100 MG Cap PO SCH ×2 (08:27→21:51)
[2022-08-24] MEDS: Phenazopyridine 95 MG Tab PO SCH ×3 (08:27→21:51)
[2022-08-24] MEDS: Tamsulosin 0.4 MG Cap.ER PO SCH ×2 (08:28→21:51)
[2022-08-24] MEDS: LORazepam 2 MG/ML SDV IVPUSH PRN (08:39)
[2022-08-24] MEDS: Pantoprazole 40 MG Tab.CR PO SCH (18:00)
[2022-08-24] MEDS: Terazosin 1 MG Cap PO SCH (21:51)
[2022-08-25] MEDS: Docusate Sodium 100 MG Cap PO SCH ×3 (01:05→20:06)
[2022-08-25] MEDS: Tamsulosin 0.4 MG Cap.ER PO SCH ×3 (01:06→20:06)
[2022-08-25] MEDS: Dextrose 5%-Lactated Ringers 1,000 ML IV SCH (01:06)
[2022-08-25] MEDS: Phenazopyridine 95 MG Tab PO SCH ×4 (01:06→20:06)
[2022-08-25] MEDS: Terazosin 1 MG Cap PO SCH ×3 (01:06→20:06)
[2022-08-25] MEDS: HYDROmorphone 2 MG Tab PO PRN ×4 (07:23→23:37)
[2022-08-25] MEDS: Aspirin 81 MG Tab.EC PO SCH (08:24)
[2022-08-25] MEDS: Cyclobenzaprine 10 MG Tab PO PRN ×2 (11:25→23:37)
[2022-08-25] MEDS: Pseudoephedrine 30 MG Tab PO PRN (11:47)
[2022-08-25] MEDS: Pantoprazole 40 MG Tab.CR PO SCH (17:26)
[2022-08-26] MEDS: Phenazopyridine 95 MG Tab PO SCH ×3 (08:54→20:25)
[2022-08-26] MEDS: Terazosin 1 MG Cap PO SCH ×2 (08:55→20:26)
[2022-08-26] MEDS: Aspirin 81 MG Tab.EC PO SCH (08:56)
[2022-08-26] MEDS: Tamsulosin 0.4 MG Cap.ER PO SCH ×2 (08:56→20:22)
[2022-08-26] MEDS: Docusate Sodium 100 MG Cap PO SCH ×2 (08:56→20:25)
[2022-08-26] MEDS: Cyclobenzaprine 10 MG Tab PO PRN (08:57)
[2022-08-26] MEDS: HYDROmorphone 2 MG Tab PO PRN ×3 (08:57→20:31)
[2022-08-26] MEDS: Pseudoephedrine 30 MG Tab PO PRN (13:36)
[2022-08-26] MEDS: Pantoprazole 40 MG Tab.CR PO SCH (17:08)
[2022-08-27] MEDS: Docusate Sodium 100 MG Cap PO SCH (08:35)
[2022-08-27] MEDS: Phenazopyridine 95 MG Tab PO SCH (08:35)
[2022-08-27] MEDS: Terazosin 1 MG Cap PO SCH (08:36)
[2022-08-27] MEDS: Tamsulosin 0.4 MG Cap.ER PO SCH (08:36)
[2022-08-27] MEDS: Aspirin 81 MG Tab.EC PO SCH (08:36)
[2022-08-27 10:35] VITALS: BP 117/60; PULSE 85
== END 2022-08-27 11:25 | disposition home or self-care (01) | DRG 329 ==
LOC: JP.SDS 06:55 → UNDOADMIN 11:00 → JP.MS 11:00
PROVIDERS: ADMIT Surgery; ATTEND Surgery
PROC: 0DBK0ZZ Excision of Ascending Colon, Open Approach (ICD-10-PCS; 2022-08-16)
PROC: 0DNU0ZZ Release Omentum, Open Approach (ICD-10-PCS; 2022-08-16)
PROC: 0FC98ZZ Extirpation of Matter from Common Bile Duct, Via Natural or Artificial Opening Endoscopic (ICD-10-PCS; 2022-08-16)
PROC: 0WQF0ZZ Repair Abdominal Wall, Open Approach (ICD-10-PCS; principal; 2022-08-18)
DX: K91.86 Retained cholelithiasis following cholecystectomy (principal); K56.2 Volvulus; I10 Essential (primary) hypertension; E78.5 Hyperlipidemia, unspecified; R35.1 Nocturia; D50.9 Iron deficiency anemia, unspecified; D86.0 Sarcoidosis of lung; R33.9 Retention of urine, unspecified; F03.90 Unspecified dementia, unspecified severity, without behavioral disturbance, psychotic disturbance, mood disturbance, and anxiety; Z98.890 Other specified postprocedural states; Z86.73 Personal history of transient ischemic attack (TIA), and cerebral infarction without residual deficits; Z90.89 Acquired absence of other organs; Z90.49 Acquired absence of other specified parts of digestive tract; Z79.899 Other long term (current) drug therapy; Z79.82 Long term (current) use of aspirin; Z88.0 Allergy status to penicillin; Z88.8 Allergy status to other drugs, medicaments and biological substances; Z87.891 Personal history of nicotine dependence; Z93.1 Gastrostomy status; Z88.5 Allergy status to narcotic agent
CPT/HCPCS: 36415; 51702; 51798; 80053; 83690; 83735; 83880; 84100; 85025; 85027; 86850; 86900; 86901; 88300; 88305; 88307; 88312; 93005; A9270-GY; C1757; C9113; J0131; J0171; J0694; J1100; J1170; J2001; J2060; J2185; J2370; J2405; J2704; J2710; J2795; J3010; J3475; J3480; J3490; J7121; U0002

== ENCOUNTER 2022-08-30 11:52 | Emergency (ER) | payer MEDICARE, BC | END 2022-08-30 13:30 | disposition left against medical advice (07) | LOC: JP.ED 11:52 | DX: Z53.21 Procedure and treatment not carried out due to patient leaving prior to being seen by health care provider (principal) ==

== ENCOUNTER 2024-01-14 15:10 | Emergency (ER) | payer MEDICARE, BC ==
[2024-01-14 16:15] LABS: BASOPHILS ABSOLUTE AUTO 0.03 K/uL (0.00-0.10); BASOPHILS PERCENT AUTO 0.4 % (0.1-1.3); EOSINOPHILS ABSOLUTE AUTO 0.06 K/uL (0.00-0.40); EOSINOPHILS PERCENT AUTO 0.8 % (0.0-5.4); HEMATOCRIT 41.2 % (38.4-49.7); HEMOGLOBIN 13.7 g/dL (12.9-16.9); IMMATURE GRAN ABSOLUTE AUTO 0.04 K/uL (0.00-0.23); IMMATURE GRAN PERCENT AUTO 0.5 % (0.0-0.7); LYMPHOCYTES ABSOLUTE AUTO 0.81 K/uL (0.8-3.3); LYMPHOCYTES PERCENT AUTO 10.8 % (11.4-47.7); MEAN CORPUSCULAR HEMOGLOBIN 29.1 pg (31.6-35.5); MEAN CORPUSCULAR HGB CONC 33.3 g/dL (31.6-35.5); MEAN CORPUSCULAR VOLUME 87.7 fL (81.4-99.0); MONOCYTES ABSOLUTE AUTO 0.55 K/uL (0.20-0.90); MONOCYTES PERCENT AUTO 7.3 % (3.3-12.6); NEUTROPHILS ABSOLUTE AUTO 6.02 K/uL (1.0-7.6); NEUTROPHILS PERCENT AUTO 80.2 % (40.0-78.1); PLATELET COUNT,PLT 191 K/uL (130-375); WHITE BLOOD CELL COUNT,WBC 7.5 K/uL (3.2-11.0)
[2024-01-14 16:30] LABS: ANION GAP 10.8 mmol/L (5.0-14.0); CALCIUM 9.3 mg/dL (8.5-10.1); CREATININE 1.1 mg/dL (0.8-1.3); EST CRCL DRUG DOSING (CG) 54.38 mL/min; POTASSIUM,K 3.8 mmol/L (3.6-5.2)
[2024-01-14] MEDS: Iopamidol 612 MG/ML 100 ML Bottle IV SCH (17:29)
[2024-01-14] MEDS: Sodium Chloride 0.9% 80 ML IV SCH (17:29)
[2024-01-14] MEDS: Sodium Chloride 0.9% 10 ML Syringe FLUSH PRN (17:29)
[2024-01-14] MEDS: Acetaminophen 500 MG Tab PO ONE (18:33)
[2024-01-14 19:15] VITALS: BP 190/97; PULSE 101
== END 2024-01-14 19:41 | disposition home or self-care (01) ==
LOC: JP.ED 15:10
DX: S22.42XA Multiple fractures of ribs, left side, initial encounter for closed fracture (principal); I10 Essential (primary) hypertension; K21.9 Gastro-esophageal reflux disease without esophagitis; Z90.49 Acquired absence of other specified parts of digestive tract; Z79.82 Long term (current) use of aspirin; Z79.899 Other long term (current) drug therapy; Z88.0 Allergy status to penicillin; Z88.1 Allergy status to other antibiotic agents; Z88.8 Allergy status to other drugs, medicaments and biological substances; Z88.5 Allergy status to narcotic agent; W19.XXXA Unspecified fall, initial encounter
CPT/HCPCS: 36415; 70450; 71260; 72125; 74177; 76377; 80048; 85025; 99284; A9270; J3490; Q9967